=== PATIENT | male | born 1940 | race Caucasian/White ===

== ENCOUNTER → 2016-10-22 | Outpatient (REF) | payer MEDICARE ==
[~2016-10-22] MED LIST: /GLYB5TA PO; /HCTZ25TA PO; /MYCO50TA PO; ALEV220C2 PO; ALLO100T PO; AMLO10TA OR; AMLO10TA2 PO; BABY81CH; BACT800T5 PO; CALCTAB68 PO; CEFT250T OR; CENTTAB PO; CITRACAL PO; DRIS50002 PO; FISH1000 PO; FLOM5CAP PO; GLYB5TA PO; HYDR-3910 PO; JANU25TA PO; LASI40TA PO; LEXA1TAB PO; LIDO1DIS2 TD; LOPE2CAP PO; MAGN500T2; MUCI600T37 PO; MULTIVIT PO; MYCO500T PO; NEUR300C; NEUR300C PO; NITR100C PO; OMEP40CA2 PO; OXYC-208 PO; OXYC-517 PO; OXYC5CAP4; PRIL20CA PO; TACR05CAP PO; ULOR80TA PO; VESI5TAB PO; [UNRECOGNIZED DRUG - OTHER] PO; [UNRECOGNIZED DRUG - OTHER] PO
== END ==
LOC: M LAB REF 16:25
PROVIDERS: ATTEND Surgery
DX: L89.613 Pressure ulcer of right heel, stage 3 (principal); E11.621 Type 2 diabetes mellitus with foot ulcer; Z94.4 Liver transplant status; Z79.899 Other long term (current) drug therapy
CPT/HCPCS: 15275; 87070; 87088; 87186; Q4131

== ENCOUNTER → 2017-06-01 | Outpatient (REF) | payer MEDICARE ==
[2017-06-01 13:50] LABS: BASO # 0.1 10^3/uL (0.0-0.2); BASO % 0.7 % (0.0-1.0); EOS # 0.1 10^3/uL (0.0-0.50); HEMATOCRIT 35.8 % (42.0-52.0); HEMOGLOBIN 11.9 g/dl (14.0-18.0); IMMATURE GRANULOCYTE % 0.6 % (0-0); LYMPH # 1.2 10^3/uL (1.5-4.5); LYMPH % 17.4 % (24.0-44.0); MEAN CORPUSCULAR HEMOGLOBIN 30.6 pg (27.0-33.0); MEAN CORPUSCULAR HGB CONC 33.2 g/dl (32.0-36.5); MONO # 0.4 10^3/uL (0.0-0.8); MONO % 5.5 % (0.0-5.0); NEUTROPHILS # 5.1 10^3/uL (1.8-7.7); NEUTROPHILS % 73.8 % (36.0-66.0); PLATELET COUNT, AUTOMATED 178 10^3/uL (150-450); RED BLOOD COUNT 3.89 10^6/uL (4.30-6.10); RED CELL DISTRIBUTION WIDTH 12.9 % (11.5-14.5); WHITE BLOOD COUNT 6.9 10^3/uL (4.0-10.0)
[2017-06-01 14:25] LABS: ESTIMATED AVERAGE GLUCOSE 137 MG/DL (60-110); HEMOGLOBIN A1c 6.4 %
[2017-06-01 14:29] LABS: VITAMIN B12 LEVEL 360 PG/ML
[2017-06-01 14:34] LABS: ALBUMIN 3.7 GM/DL (3.2-5.2); ALBUMIN/GLOBULIN RATIO 0.97 (1.00-1.93); ALKALINE PHOSPHATASE 89 U/L (45-117); ALT/SGPT 15 U/L (12-78); ANION GAP 13 MEQ/L (8-16); AST/SGOT 11 U/L (7-37); BILIRUBIN,TOTAL 0.4 MG/DL (0.2-1.0); BLOOD UREA NITROGEN 24 MG/DL (7-18); CALCIUM LEVEL 8.3 MG/DL (8.8-10.2); CARBON DIOXIDE LEVEL 31 MEQ/L (21-32); CHLORIDE LEVEL 97 MEQ/L (98-107); CREATININE FOR GFR 7.14 MG/DL (0.70-1.30); GLUCOSE, FASTING 214 MG/DL (70-100); POTASSIUM SERUM 3.5 MEQ/L (3.5-5.1); SODIUM LEVEL 141 MEQ/L (136-145); TOTAL PROTEIN 7.5 GM/DL (6.4-8.2)
[2017-06-03 10:35] LABS: ALBUMIN 4.14 GM/DL (3.29-5.55); ALBUMIN % 55.2 % (55.8-66.1); ALPHA-1-GLOBULIN % 4.4 % (2.9-4.9); BETA-2-GLOBULINS % 6.8 % (3.2-6.5); GAMMA GLOBULIN % 17.6 % (11.1-18.8)
[2017-06-03 10:36] LABS: ALPHA-1-GLOBULINS 0.33 GM/DL (0.17-0.41); ALPHA-2-GLOBULINS 0.75 GM/DL (0.42-0.99); BETA-1-GLOBULINS 0.45 GM/DL (0.28-0.60); BETA-2-GLOBULINS 0.51 GM/DL (0.19-0.55); GAMMA GLOBULINS 1.32 GM/DL (0.65-1.58)
[2017-06-03 10:54] LABS: IMMUNOTYPING SERUM IGA ABNORMAL (NORMAL); IMMUNOTYPING SERUM KAPPA ABNORMAL (NORMAL)
== END ==
LOC: M LABNEURO 10:11
DX: E11.9 Type 2 diabetes mellitus without complications (principal); E03.9 Hypothyroidism, unspecified
CPT/HCPCS: 82746

== ENCOUNTER 2022-01-01 06:20 | Inpatient (IN) | payer MEDICARE ==
[~2022-01-01] VITALS: Ht 180.3 cm; Wt 70.3 kg
[~2022-01-01 06:20] MED LIST changes: -/GLYB5TA PO; -/HCTZ25TA PO; -/MYCO50TA PO; -AMLO10TA2 PO; +AMLO1TAB25 PO; +CELL1TAB PO; -DRIS50002 PO; +DRIS50003 PO; +FLOM0.4C39 PO; -FLOM5CAP PO; +GLYB1TAB29 PO; -GLYB5TA PO; +GLYB5TAB6 PO; +HYDR-3644 PO; -LASI40TA PO; +LASI40TA9 PO; -OMEP40CA2 PO; +OMEP40CA4 PO; +PROG1CAP10 PO; -TACR05CAP PO
[2022-01-01] MEDS ORDERED: **hydrALAZINE HCL** 25 MG TAB PO ONE (07:55)
[2022-01-01 08:00] LABS: BASO % 0.5 % (0.0-1.0); EOS # 0.1 10^3/uL (0.0-0.5); EOS % 0.8 % (0.0-3.0); HEMATOCRIT 31.5 % (42.0-52.0); HEMOGLOBIN 10.2 g/dl (13.5-17.5); LYMPH # 0.6 10^3/uL (1.5-5.0); LYMPH % 8.9 % (24.0-44.0); MEAN CORPUSCULAR HEMOGLOBIN 30.4 pg (27.0-33.0); MEAN CORPUSCULAR HGB CONC 32.4 g/dl (32.0-36.5); MEAN CORPUSCULAR VOLUME 93.8 fl (80.0-96.0); MONO # 0.4 10^3/uL (0.0-0.8); MONO % 5.4 % (2.0-8.0); NEUTROPHILS # 5.5 10^3/uL (1.5-8.5); NEUTROPHILS % 84.1 % (36.0-66.0); PLATELET COUNT, AUTOMATED 120 10^3/uL (150-450); RED BLOOD COUNT 3.36 10^6/uL (4.30-6.10); WHITE BLOOD COUNT 6.5 10^3/uL (4.0-10.0)
[2022-01-01 08:41] LABS: ALBUMIN 2.5 GM/DL (3.2-5.2); BILIRUBIN,DIRECT 0.1 MG/DL (0.0-0.2); BILIRUBIN,TOTAL 0.4 MG/DL (0.2-1.0); CALCIUM LEVEL 7.7 MG/DL (8.8-10.2); CREATININE FOR GFR 3.05 MG/DL (0.70-1.30); GLOMERULAR FILTRATION RATE 21.1 (>35); POTASSIUM SERUM 3.7 MEQ/L (3.5-5.1); THYROID STIMULATING HORMONE 2.7 uIU/ML (0.358-3.740)
[2022-01-01] MEDS ORDERED: hydrALAZINE 20MG/ML 1ML VIAL (J0360 PER 20MG) IV STA (09:51)
[2022-01-01 10:12] LABS: RSV AMPLIFICATION NEGATIVE (NEGATIVE)
[2022-01-01] MEDS ORDERED: cefTRIAXone SOD 2 GM in D5W MINI-BAG PLUS 50 ML IV ONE (10:15)
[2022-01-01 10:33] LABS: INR 1.86; PROTHROMBIN TIME 21.8 SECONDS (12.7-14.5)
[2022-01-01 10:57] LABS: VENOUS BASE EXCESS 11.2 (-2.0-2.0); VENOUS HCO3 37.9 MEQ/L (23.0-27.0); VENOUS O2 SATURATION 74.9 % (60.0-80.0); VENOUS PARTIAL PRESSURE CO2 60.2 mmHg (38.0-50.0); VENOUS PARTIAL PRESSURE O2 38.4 mmHg (30.0-50.0); VENOUS PH 7.417 UNITS (7.330-7.430); VENOUS STANDARD HCO3 34.4 MEQ/L; VENOUS TOTAL CO2 39.8 MEQ/L (24.0-28.0)
[2022-01-01] MEDS ORDERED: WARF-58 PO (11:08)
[2022-01-01] MEDS ORDERED: TACR1CAP3 PO (11:08)
[2022-01-01] MEDS ORDERED: VENL37.598 PO (11:08)
[2022-01-01] MEDS ORDERED: DRIS50003 PO (11:08)
[2022-01-01] MEDS ORDERED: NORV5TAB PO (11:08)
[2022-01-01] MEDS ORDERED: ESOM1CAP5 PO (11:13)
[2022-01-01] MEDS ORDERED: TACR0.5C3 PO (11:13)
[2022-01-01 11:16] LABS: MAGNESIUM LEVEL 1.7 MG/DL (1.8-2.4); PHOSPHORUS LEVEL 2.9 MG/DL (2.5-4.9)
[2022-01-01] MEDS ORDERED: MOM 30ML SUSPENSION UDC PO PRN (11:20)
[2022-01-01] MEDS ORDERED: pt comment (11:22)
[2022-01-01] MEDS ORDERED: HOME MED LIST COMPLETE! XX SCH (11:25)
[2022-01-01] MEDS: INSULIN LISPRO (NovoLOG) PER UNIT SC SCH ×3 (12:00→21:00)
[2022-01-01] MEDS ORDERED: WARFARIN SOD 5MG TAB PO ONE (12:15)
[2022-01-01] MEDS ORDERED: hydrALAZINE 20MG/ML 1ML VIAL (J0360 PER 20MG) IV PRN ×2 (12:15→17:10)
[2022-01-01] MEDS ORDERED: DEXTROSE 50% 50 ML SYRINGE IV PRN ×2 (12:20→16:20)
[2022-01-01] MEDS ORDERED: GLUCOSE 4GM CHEW TABLET PO PRN ×2 (12:20→16:20)
[2022-01-01] MEDS ORDERED: GLUCAGON INJ 1MG VIAL SC PRN ×2 (12:20→16:20)
[2022-01-01] MEDS ORDERED: ONDANSETRON 4MG 2ML VIAL IV PRN (13:00)
[2022-01-01 15:40] VITALS: BP 209/86
[2022-01-01 16:12] VITALS: BP 182/76
[2022-01-01] MEDS: MYCOPHENOLATE MOFETIL 250 MG CAP (J7517) PO SCH ×2 (17:23→21:27)
[2022-01-01] MEDS: VENLAFAXINE **XR** 37.5 MG CAPSULE PO SCH (17:23)
[2022-01-01] MEDS: PANTOPRAZOLE 40MG VIAL IV SCH (17:23)
[2022-01-01 18:18] VITALS: BP 160/62
[2022-01-01 20:42] VITALS: BP 165/75
[2022-01-01] MEDS: TACROLIMUS 0.5 MG CAP PO SCH (21:28)
[2022-01-01] MEDS: CARVedilol 12.5 MG TAB PO SCH (21:28)
[2022-01-02] VITALS (8 sets, daily range): BP systolic 134–165; BP diastolic 58–72
[2022-01-02 01:19] LABS: CK-MB VALUE MASS 2.9 NG/ML (<3.6); MB/CK RELATIVE INDEX 2.66 (< OR =4)
[2022-01-02] MEDS ORDERED: LIDOCAINE 1% SDV 5ML VIAL SC PRN (06:00)
[2022-01-02] MEDS: INSULIN LISPRO (NovoLOG) PER UNIT SC SCH ×4 (07:30→21:00)
[2022-01-02 08:00] LABS: BASO % 0.8 % (0.0-1.0); EOS # 0.1 10^3/uL (0.0-0.5); EOS % 3.9 % (0.0-3.0); HEMATOCRIT 29.8 % (42.0-52.0); HEMOGLOBIN 9.5 g/dl (13.5-17.5); LYMPH # 0.8 10^3/uL (1.5-5.0); LYMPH % 22.6 % (24.0-44.0); MEAN CORPUSCULAR HEMOGLOBIN 30.1 pg (27.0-33.0); MEAN CORPUSCULAR HGB CONC 31.9 g/dl (32.0-36.5); MEAN CORPUSCULAR VOLUME 94.3 fl (80.0-96.0); MONO # 0.2 10^3/uL (0.0-0.8); MONO % 6.1 % (2.0-8.0); NEUTROPHILS # 2.4 10^3/uL (1.5-8.5); NEUTROPHILS % 66.3 % (36.0-66.0); PLATELET COUNT, AUTOMATED 102 10^3/uL (150-450); RED BLOOD COUNT 3.16 10^6/uL (4.30-6.10); WHITE BLOOD COUNT 3.6 10^3/uL (4.0-10.0)
[2022-01-02 08:09] LABS: INR 2.78; PROTHROMBIN TIME 29.7 SECONDS (12.7-14.5)
[2022-01-02] MEDS: PANTOPRAZOLE 40MG VIAL IV SCH (08:20)
[2022-01-02] MEDS: VENLAFAXINE **XR** 37.5 MG CAPSULE PO SCH (08:21)
[2022-01-02] MEDS: CARVedilol 12.5 MG TAB PO SCH ×3 (08:22→21:42)
[2022-01-02 08:44] LABS: CREATININE FOR GFR 4.98 MG/DL (0.70-1.30); POTASSIUM SERUM 3.5 MEQ/L (3.5-5.1)
[2022-01-02] MEDS: MYCOPHENOLATE MOFETIL 250 MG CAP (J7517) PO SCH ×2 (09:31→21:37)
[2022-01-02] MEDS ORDERED: ISOVUE-370 76% 100ML VIAL As Ordered ONE (10:32)
[2022-01-02] MEDS: PIPERACILLIN/TAZOBACTAM SOD 3.375 GM in D5W MINI-BAG PLUS 50 ML IV SCH ×2 (16:49→21:38)
[2022-01-02] MEDS: WARFARIN SOD 3MG TAB PO SCH (16:49)
[2022-01-02] MEDS: ACETAMINOPHEN TAB 650MG DOSE (2X325MG) PO PRN (16:54)
[2022-01-02] MEDS: TACROLIMUS 0.5 MG CAP PO SCH (21:37)
[2022-01-03] MEDS: PIPERACILLIN/TAZOBACTAM SOD 3.375 GM in D5W MINI-BAG PLUS 50 ML IV SCH ×2 (03:26→09:36)
[2022-01-03 04:49] VITALS: BP 142/72
[2022-01-03 07:07] LABS: BASO % 1.2 % (0.0-1.0); EOS # 0.2 10^3/uL (0.0-0.5); EOS % 5.6 % (0.0-3.0); HEMATOCRIT 26.1 % (42.0-52.0); HEMOGLOBIN 8.5 g/dl (13.5-17.5); LYMPH # 0.8 10^3/uL (1.5-5.0); LYMPH % 23.5 % (24.0-44.0); MEAN CORPUSCULAR HEMOGLOBIN 30.7 pg (27.0-33.0); MEAN CORPUSCULAR HGB CONC 32.6 g/dl (32.0-36.5); MEAN CORPUSCULAR VOLUME 94.2 fl (80.0-96.0); MONO # 0.3 10^3/uL (0.0-0.8); MONO % 8.6 % (2.0-8.0); NEUTROPHILS % 60.5 % (36.0-66.0); PLATELET COUNT, AUTOMATED 106 10^3/uL (150-450); RED BLOOD COUNT 2.77 10^6/uL (4.30-6.10); WHITE BLOOD COUNT 3.2 10^3/uL (4.0-10.0)
[2022-01-03 07:25] LABS: INR 3.82; PROTHROMBIN TIME 37.8 SECONDS (12.7-14.5)
[2022-01-03] MEDS: INSULIN LISPRO (NovoLOG) PER UNIT SC SCH ×4 (07:30→20:15)
[2022-01-03 07:35] LABS: CALCIUM LEVEL 8.4 MG/DL (8.8-10.2); CREATININE FOR GFR 3.07 MG/DL (0.70-1.30); POTASSIUM SERUM 3.5 MEQ/L (3.5-5.1)
[2022-01-03 08:49] VITALS: BP 186/80
[2022-01-03] MEDS ORDERED: **hydrALAZINE** 10 MG TAB PO SCH (09:00)
[2022-01-03] MEDS ORDERED: AUGMENTIN 875 MG TAB PO SCH (09:00)
[2022-01-03] MEDS: OMEPRAZOLE 20MG CAP PO SCH (09:30)
[2022-01-03] MEDS: MYCOPHENOLATE MOFETIL 250 MG CAP (J7517) PO SCH ×2 (09:30→20:12)
[2022-01-03] MEDS: VENLAFAXINE **XR** 37.5 MG CAPSULE PO SCH (09:31)
[2022-01-03] MEDS ORDERED: PILL CUTTER 1 EACH XX PRN (09:40)
[2022-01-03 12:00] VITALS: BP 185/78
[2022-01-03] MEDS: AUGMENTIN 500MG TAB PO SCH ×2 (13:39→20:12)
[2022-01-03 16:00] VITALS: BP 154/70
[2022-01-03] MEDS: **hydrALAZINE** 50 MG TAB PO SCH ×2 (17:02→20:14)
[2022-01-03 20:00] VITALS: BP 183/76
[2022-01-03] MEDS: TACROLIMUS 0.5 MG CAP PO SCH (20:12)
[2022-01-03 23:59] VITALS: BP 178/82
[2022-01-04] MEDS ORDERED: cloNIDine 0.2 MG TAB PO ONE (01:00)
[2022-01-04 03:00] VITALS: BP 170/60
[2022-01-04] MEDS: ACETAMINOPHEN TAB 650MG DOSE (2X325MG) PO PRN ×2 (06:24→20:08)
[2022-01-04 06:32] LABS: BASO % 0.8 % (0.0-1.0); EOS # 0.2 10^3/uL (0.0-0.5); HEMOGLOBIN 8.7 g/dl (13.5-17.5); LYMPH # 0.9 10^3/uL (1.5-5.0); LYMPH % 24.1 % (24.0-44.0); MEAN CORPUSCULAR HEMOGLOBIN 30.2 pg (27.0-33.0); MEAN CORPUSCULAR HGB CONC 32.2 g/dl (32.0-36.5); MEAN CORPUSCULAR VOLUME 93.8 fl (80.0-96.0); MONO # 0.3 10^3/uL (0.0-0.8); MONO % 8.1 % (2.0-8.0); NEUTROPHILS # 2.3 10^3/uL (1.5-8.5); NEUTROPHILS % 61.5 % (36.0-66.0); PLATELET COUNT, AUTOMATED 103 10^3/uL (150-450); RED BLOOD COUNT 2.88 10^6/uL (4.30-6.10); WHITE BLOOD COUNT 3.8 10^3/uL (4.0-10.0)
[2022-01-04 06:53] LABS: INR 4.06; PROTHROMBIN TIME 39.6 SECONDS (12.7-14.5)
[2022-01-04 07:17] LABS: CALCIUM LEVEL 8.6 MG/DL (8.8-10.2); CREATININE FOR GFR 4.44 MG/DL (0.70-1.30); GLOMERULAR FILTRATION RATE 13.7 (>35); POTASSIUM SERUM 3.3 MEQ/L (3.5-5.1)
[2022-01-04] MEDS: INSULIN LISPRO (NovoLOG) PER UNIT SC SCH ×5 (07:30→20:07)
[2022-01-04] MEDS ORDERED: POTASSIUM CHLORIDE 10MEQ SR TABLET PO ONE (08:15)
[2022-01-04] MEDS: AUGMENTIN 500MG TAB PO SCH ×2 (08:43→20:09)
[2022-01-04] MEDS: OMEPRAZOLE 20MG CAP PO SCH (08:43)
[2022-01-04] MEDS: MYCOPHENOLATE MOFETIL 250 MG CAP (J7517) PO SCH ×2 (08:44→20:15)
[2022-01-04] MEDS: VENLAFAXINE **XR** 37.5 MG CAPSULE PO SCH (08:45)
[2022-01-04] MEDS: **hydrALAZINE** 50 MG TAB PO SCH ×3 (08:46→20:10)
[2022-01-04 19:28] VITALS: BP 170/78
[2022-01-04 19:30] LABS: CLOSTRIDIUM DIFFICILE PCR NEGATIVE (NEGATIVE)
[2022-01-04] MEDS: TACROLIMUS 0.5 MG CAP PO SCH (20:10)
[2022-01-05 04:24] VITALS: BP 176/80
[2022-01-05] MEDS: **hydrALAZINE** 50 MG TAB PO SCH ×3 (05:22→20:40)
[2022-01-05] MEDS: OMEPRAZOLE 20MG CAP PO SCH (05:23)
[2022-01-05] MEDS: MYCOPHENOLATE MOFETIL 250 MG CAP (J7517) PO SCH ×2 (05:23→20:38)
[2022-01-05] MEDS: VENLAFAXINE **XR** 37.5 MG CAPSULE PO SCH (05:24)
[2022-01-05] MEDS: AUGMENTIN 500MG TAB PO SCH (05:24)
[2022-01-05] MEDS: ACETAMINOPHEN TAB 650MG DOSE (2X325MG) PO PRN ×2 (05:24→12:37)
[2022-01-05] MEDS ORDERED: SODIUM CHLORIDE 0.9% 1000ML IV PRN (06:25)
[2022-01-05] MEDS ORDERED: LIDOCAINE 1% SDV 5ML VIAL SC PRN (06:25)
[2022-01-05 07:30] LABS: BASO # 0.1 10^3/uL (0.0-0.2); BASO % 1.1 % (0.0-1.0); EOS # 0.2 10^3/uL (0.0-0.5); EOS % 5.1 % (0.0-3.0); HEMATOCRIT 30.8 % (42.0-52.0); HEMOGLOBIN 9.7 g/dl (13.5-17.5); LYMPH % 21.8 % (24.0-44.0); MEAN CORPUSCULAR HEMOGLOBIN 29.3 pg (27.0-33.0); MEAN CORPUSCULAR HGB CONC 31.5 g/dl (32.0-36.5); MEAN CORPUSCULAR VOLUME 93.1 fl (80.0-96.0); MONO # 0.3 10^3/uL (0.0-0.8); MONO % 7.1 % (2.0-8.0); NEUTROPHILS # 2.9 10^3/uL (1.5-8.5); NEUTROPHILS % 64.7 % (36.0-66.0); PLATELET COUNT, AUTOMATED 133 10^3/uL (150-450); RED BLOOD COUNT 3.31 10^6/uL (4.30-6.10); WHITE BLOOD COUNT 4.5 10^3/uL (4.0-10.0)
[2022-01-05] MEDS: INSULIN LISPRO (NovoLOG) PER UNIT SC SCH ×4 (07:30→19:37)
[2022-01-05 07:47] LABS: CALCIUM LEVEL 8.5 MG/DL (8.8-10.2); CREATININE FOR GFR 5.73 MG/DL (0.70-1.30); GLOMERULAR FILTRATION RATE 10.2 (>35); POTASSIUM SERUM 3.5 MEQ/L (3.5-5.1)
[2022-01-05 07:53] LABS: PROTHROMBIN TIME 23.1 SECONDS (12.7-14.5)
[2022-01-05] MEDS: LACTOBACILLUS ACIDOPHILUS CAP (BACID) PO SCH ×2 (08:00→17:00)
[2022-01-05] MEDS: DARBEPOETIN 100 MCG/0.5 ML *DIALYSIS* SYRINGE (J0882) IV SCH (10:16)
[2022-01-05] MEDS: WARFARIN SOD 3MG TAB PO SCH (16:31)
[2022-01-05] MEDS: TACROLIMUS 0.5 MG CAP PO SCH (20:38)
[2022-01-06 04:00] VITALS: BP 172/76
[2022-01-06 05:57] LABS: BASO % 0.7 % (0.0-1.0); EOS # 0.2 10^3/uL (0.0-0.5); EOS % 3.5 % (0.0-3.0); HEMATOCRIT 27.5 % (42.0-52.0); HEMOGLOBIN 8.8 g/dl (13.5-17.5); LYMPH # 1.1 10^3/uL (1.5-5.0); LYMPH % 25.8 % (24.0-44.0); MEAN CORPUSCULAR HEMOGLOBIN 29.4 pg (27.0-33.0); MONO # 0.3 10^3/uL (0.0-0.8); MONO % 7.4 % (2.0-8.0); NEUTROPHILS # 2.7 10^3/uL (1.5-8.5); NEUTROPHILS % 62.4 % (36.0-66.0); PLATELET COUNT, AUTOMATED 113 10^3/uL (150-450); RED BLOOD COUNT 2.99 10^6/uL (4.30-6.10); WHITE BLOOD COUNT 4.3 10^3/uL (4.0-10.0)
[2022-01-06 06:18] LABS: INR 1.59; PROTHROMBIN TIME 19.3 SECONDS (12.7-14.5)
[2022-01-06 07:01] LABS: CALCIUM LEVEL 8.2 MG/DL (8.8-10.2); CREATININE FOR GFR 4.27 MG/DL (0.70-1.30); GLOMERULAR FILTRATION RATE 14.3 (>35); POTASSIUM SERUM 3.6 MEQ/L (3.5-5.1)
[2022-01-06] MEDS: INSULIN LISPRO (NovoLOG) PER UNIT SC SCH ×4 (07:11→21:00)
[2022-01-06] MEDS: LACTOBACILLUS ACIDOPHILUS CAP (BACID) PO SCH ×2 (08:08→16:31)
[2022-01-06] MEDS: OMEPRAZOLE 20MG CAP PO SCH (08:09)
[2022-01-06] MEDS: VENLAFAXINE **XR** 37.5 MG CAPSULE PO SCH (08:09)
[2022-01-06] MEDS: **hydrALAZINE** 50 MG TAB PO SCH ×3 (08:09→21:06)
[2022-01-06] MEDS: MYCOPHENOLATE MOFETIL 250 MG CAP (J7517) PO SCH ×2 (08:12→21:05)
[2022-01-06] MEDS: ONDANSETRON 4MG TAB PO PRN ×2 (10:25→16:31)
[2022-01-06 14:00] VITALS: BP 168/75
[2022-01-06] MEDS: WARFARIN SOD 3MG TAB PO SCH (16:31)
[2022-01-06 18:00] VITALS: BP 130/80
[2022-01-06] MEDS: TACROLIMUS 0.5 MG CAP PO SCH (21:05)
[2022-01-06 22:00] VITALS: BP 149/54
[2022-01-07] MEDS: VENLAFAXINE **XR** 37.5 MG CAPSULE PO SCH (05:26)
[2022-01-07] MEDS: LACTOBACILLUS ACIDOPHILUS CAP (BACID) PO SCH ×2 (05:26→17:27)
[2022-01-07] MEDS: MYCOPHENOLATE MOFETIL 250 MG CAP (J7517) PO SCH ×2 (05:27→21:59)
[2022-01-07] MEDS: OMEPRAZOLE 20MG CAP PO SCH (05:27)
[2022-01-07] MEDS: **hydrALAZINE** 50 MG TAB PO SCH ×3 (05:28→21:58)
[2022-01-07 05:56] LABS: BASO % 1.2 % (0.0-1.0); EOS # 0.1 10^3/uL (0.0-0.5); EOS % 3.9 % (0.0-3.0); HEMATOCRIT 29.3 % (42.0-52.0); HEMOGLOBIN 9.4 g/dl (13.5-17.5); LYMPH % 30.3 % (24.0-44.0); MEAN CORPUSCULAR HEMOGLOBIN 29.9 pg (27.0-33.0); MEAN CORPUSCULAR HGB CONC 32.1 g/dl (32.0-36.5); MEAN CORPUSCULAR VOLUME 93.3 fl (80.0-96.0); MONO # 0.3 10^3/uL (0.0-0.8); MONO % 7.4 % (2.0-8.0); NEUTROPHILS # 1.9 10^3/uL (1.5-8.5); NEUTROPHILS % 56.9 % (36.0-66.0); PLATELET COUNT, AUTOMATED 112 10^3/uL (150-450); RED BLOOD COUNT 3.14 10^6/uL (4.30-6.10); WHITE BLOOD COUNT 3.4 10^3/uL (4.0-10.0)
[2022-01-07 06:00] VITALS: BP 149/61
[2022-01-07] MEDS ORDERED: LIDOCAINE 1% SDV 5ML VIAL SC PRN (06:40)
[2022-01-07] MEDS ORDERED: SODIUM CHLORIDE 0.9% 1000ML IV PRN (06:40)
[2022-01-07 06:46] LABS: CALCIUM LEVEL 8.2 MG/DL (8.8-10.2); CREATININE FOR GFR 5.63 MG/DL (0.70-1.30); GLOMERULAR FILTRATION RATE 10.4 (>35); POTASSIUM SERUM 3.8 MEQ/L (3.5-5.1)
[2022-01-07] MEDS: INSULIN LISPRO (NovoLOG) PER UNIT SC SCH (07:27)
[2022-01-07 14:00] VITALS: BP 192/90
[2022-01-07 14:36] VITALS: BP 192/90
[2022-01-07] MEDS ORDERED: **hydrALAZINE** 50 MG TAB PO ONE (16:00)
[2022-01-07] MEDS ORDERED: COVID-19 VACC, MRNA(PFIZER)/PF 30MCG 0.3ML VIAL (EUA) IM.IMMUN ONE (17:00)
[2022-01-07] MEDS: WARFARIN SOD 3MG TAB PO SCH (17:27)
[2022-01-07 17:28] VITALS: BP 148/78
[2022-01-07] MEDS: TACROLIMUS 0.5 MG CAP PO SCH (21:59)
[2022-01-07] MEDS: ACETAMINOPHEN TAB 650MG DOSE (2X325MG) PO PRN (22:02)
[2022-01-08 06:00] VITALS: BP 155/73
[2022-01-08 06:55] LABS: BASO % 0.7 % (0.0-1.0); EOS # 0.2 10^3/uL (0.0-0.5); EOS % 4.9 % (0.0-3.0); HEMATOCRIT 31.4 % (42.0-52.0); HEMOGLOBIN 9.9 g/dl (13.5-17.5); MEAN CORPUSCULAR HEMOGLOBIN 29.8 pg (27.0-33.0); MEAN CORPUSCULAR HGB CONC 31.5 g/dl (32.0-36.5); MEAN CORPUSCULAR VOLUME 94.6 fl (80.0-96.0); MONO # 0.2 10^3/uL (0.0-0.8); MONO % 4.4 % (2.0-8.0); NEUTROPHILS # 2.7 10^3/uL (1.5-8.5); NEUTROPHILS % 65.8 % (36.0-66.0); PLATELET COUNT, AUTOMATED 133 10^3/uL (150-450); RED BLOOD COUNT 3.32 10^6/uL (4.30-6.10); WHITE BLOOD COUNT 4.1 10^3/uL (4.0-10.0)
[2022-01-08 07:06] LABS: INR 1.24
[2022-01-08 07:22] LABS: CALCIUM LEVEL 8.7 MG/DL (8.8-10.2); CREATININE FOR GFR 4.27 MG/DL (0.70-1.30); GLOMERULAR FILTRATION RATE 14.3 (>35); POTASSIUM SERUM 4.6 MEQ/L (3.5-5.1)
[2022-01-08] MEDS: LIDOCAINE 5% (LIDODERM) PATCH TD SCH (09:00)
[2022-01-08] MEDS: LACTOBACILLUS ACIDOPHILUS CAP (BACID) PO SCH ×2 (09:32→17:39)
[2022-01-08] MEDS: OMEPRAZOLE 20MG CAP PO SCH (09:32)
[2022-01-08] MEDS: MYCOPHENOLATE MOFETIL 250 MG CAP (J7517) PO SCH ×2 (09:33→21:05)
[2022-01-08] MEDS: VENLAFAXINE **XR** 37.5 MG CAPSULE PO SCH (09:33)
[2022-01-08] MEDS: **hydrALAZINE** 50 MG TAB PO SCH ×3 (09:33→21:02)
[2022-01-08] MEDS: WARFARIN SOD 5MG TAB PO SCH (17:40)
[2022-01-08] MEDS: **NOTE PATIENT COMMENT** MISC XX SCH (20:53)
[2022-01-08] MEDS: TACROLIMUS 0.5 MG CAP PO SCH (21:02)
[2022-01-09 04:59] VITALS: BP 175/70
[2022-01-09] MEDS: LACTOBACILLUS ACIDOPHILUS CAP (BACID) PO SCH ×2 (06:25→17:09)
[2022-01-09] MEDS: VENLAFAXINE **XR** 37.5 MG CAPSULE PO SCH (06:25)
[2022-01-09] MEDS: MYCOPHENOLATE MOFETIL 250 MG CAP (J7517) PO SCH ×2 (06:25→20:58)
[2022-01-09] MEDS: LIDOCAINE 5% (LIDODERM) PATCH TD SCH ×2 (06:26→06:29)
[2022-01-09] MEDS: OMEPRAZOLE 20MG CAP PO SCH (06:26)
[2022-01-09 06:35] LABS: INR 1.17; PROTHROMBIN TIME 15.3 SECONDS (12.7-14.5)
[2022-01-09 06:53] LABS: CREATININE FOR GFR 5.38 MG/DL (0.70-1.30)
[2022-01-09] MEDS ORDERED: SODIUM CHLORIDE 0.9% 1000ML IV PRN (07:45)
[2022-01-09] MEDS ORDERED: LIDOCAINE 1% SDV 5ML VIAL SC PRN (07:45)
[2022-01-09] MEDS: **hydrALAZINE** 50 MG TAB PO SCH ×2 (08:03→17:09)
[2022-01-09] MEDS ORDERED: LOPERAMIDE 2 MG CAPLET PO PRN (08:10)
[2022-01-09] MEDS ORDERED: WARFARIN SOD 3MG TAB PO ONE (17:00)
[2022-01-09] MEDS: WARFARIN SOD 5MG TAB PO SCH (17:09)
[2022-01-09] MEDS ORDERED: IPRATROPIUM 0.5MG/ALBUTEROL 2.5MG INH SOL UD 3ML (DUONEB) NEB PRN (19:20)
[2022-01-09] MEDS ORDERED: **hydrALAZINE HCL** 25 MG TAB PO SCH (21:00)
[2022-01-09] MEDS: TACROLIMUS 0.5 MG CAP PO SCH (21:04)
[2022-01-09] MEDS: **NOTE PATIENT COMMENT** MISC XX SCH (21:07)
[2022-01-10 06:00] VITALS: BP 180/77
[2022-01-10 07:27] LABS: INR 1.38; PROTHROMBIN TIME 17.4 SECONDS (12.7-14.5)
[2022-01-10] MEDS: LACTOBACILLUS ACIDOPHILUS CAP (BACID) PO SCH ×2 (08:55→17:22)
[2022-01-10] MEDS: MYCOPHENOLATE MOFETIL 250 MG CAP (J7517) PO SCH ×2 (08:56→21:16)
[2022-01-10] MEDS: LIDOCAINE 5% (LIDODERM) PATCH TD SCH (08:56)
[2022-01-10] MEDS: OMEPRAZOLE 20MG CAP PO SCH (08:56)
[2022-01-10] MEDS: VENLAFAXINE **XR** 37.5 MG CAPSULE PO SCH (08:56)
[2022-01-10] MEDS: **hydrALAZINE HCL** 25 MG TAB PO SCH ×3 (08:59→21:19)
[2022-01-10] MEDS: NIFEdipine 30 MG XL TAB PO SCH (09:56)
[2022-01-10] MEDS ORDERED: WARFARIN SOD 2MG TAB PO ONE (17:00)
[2022-01-10] MEDS: WARFARIN SOD 5MG TAB PO SCH (17:23)
[2022-01-10] MEDS: ACETAMINOPHEN TAB 650MG DOSE (2X325MG) PO PRN (21:16)
[2022-01-10] MEDS: TACROLIMUS 0.5 MG CAP PO SCH (21:19)
[2022-01-10] MEDS: **NOTE PATIENT COMMENT** MISC XX SCH (21:20)
[2022-01-11 06:08] VITALS: BP 146/84
[2022-01-11 06:36] LABS: INR 2.09; PROTHROMBIN TIME 23.9 SECONDS (12.7-14.5)
[2022-01-11] MEDS: OMEPRAZOLE 20MG CAP PO SCH (09:39)
[2022-01-11] MEDS: VENLAFAXINE **XR** 37.5 MG CAPSULE PO SCH (09:39)
[2022-01-11] MEDS: **hydrALAZINE HCL** 25 MG TAB PO SCH ×3 (09:40→21:50)
[2022-01-11] MEDS: NIFEdipine 30 MG XL TAB PO SCH (09:41)
[2022-01-11] MEDS: MYCOPHENOLATE MOFETIL 250 MG CAP (J7517) PO SCH ×2 (09:41→21:50)
[2022-01-11] MEDS: LACTOBACILLUS ACIDOPHILUS CAP (BACID) PO SCH ×2 (09:41→16:55)
[2022-01-11] MEDS: LIDOCAINE 5% (LIDODERM) PATCH TD SCH (09:42)
[2022-01-11] MEDS: WARFARIN SOD 5MG TAB PO SCH (16:53)
[2022-01-11] MEDS: ACETAMINOPHEN TAB 650MG DOSE (2X325MG) PO PRN (16:56)
[2022-01-11] MEDS: **NOTE PATIENT COMMENT** MISC XX SCH (21:00)
[2022-01-11] MEDS: TACROLIMUS 0.5 MG CAP PO SCH (21:49)
[2022-01-12 06:00] VITALS: BP 159/59
[2022-01-12] MEDS ORDERED: LIDOCAINE 1% SDV 5ML VIAL SC PRN (06:00)
[2022-01-12] MEDS ORDERED: SODIUM CHLORIDE 0.9% 1000ML IV PRN (06:00)
[2022-01-12] MEDS: LACTOBACILLUS ACIDOPHILUS CAP (BACID) PO SCH ×2 (06:48→16:54)
[2022-01-12 06:49] LABS: INR 2.79; PROTHROMBIN TIME 29.8 SECONDS (12.7-14.5)
[2022-01-12] MEDS: VENLAFAXINE **XR** 37.5 MG CAPSULE PO SCH (06:49)
[2022-01-12] MEDS: MYCOPHENOLATE MOFETIL 250 MG CAP (J7517) PO SCH ×2 (06:49→21:13)
[2022-01-12] MEDS: LIDOCAINE 5% (LIDODERM) PATCH TD SCH (06:49)
[2022-01-12] MEDS: OMEPRAZOLE 20MG CAP PO SCH (06:49)
[2022-01-12] MEDS: **hydrALAZINE HCL** 25 MG TAB PO SCH ×3 (08:34→21:14)
[2022-01-12] MEDS: NIFEdipine 30 MG XL TAB PO SCH (08:34)
[2022-01-12] MEDS: DARBEPOETIN 100 MCG/0.5 ML *DIALYSIS* SYRINGE (J0882) IV SCH (11:35)
[2022-01-12] MEDS: WARFARIN SOD 3MG TAB PO SCH (16:54)
[2022-01-12] MEDS: TACROLIMUS 0.5 MG CAP PO SCH (21:23)
[2022-01-12] MEDS: **NOTE PATIENT COMMENT** MISC XX SCH (21:30)
[2022-01-13 06:00] VITALS: BP 188/72
[2022-01-13] MEDS ORDERED: SODIUM CHLORIDE 0.9% 1000ML IV PRN (06:00)
[2022-01-13] MEDS ORDERED: LIDOCAINE 1% SDV 5ML VIAL SC PRN (06:00)
[2022-01-13 06:54] LABS: INR 2.56; PROTHROMBIN TIME 27.8 SECONDS (12.7-14.5)
[2022-01-13 06:58] LABS: CALCIUM LEVEL 8.6 MG/DL (8.8-10.2); CREATININE FOR GFR 4.03 MG/DL (0.70-1.30); GLOMERULAR FILTRATION RATE 15.3 (>35); POTASSIUM SERUM 4.3 MEQ/L (3.5-5.1)
[2022-01-13] MEDS ORDERED: DOXAZOSIN MESYLATE 1 MG TAB PO ONE (07:00)
[2022-01-13] MEDS: LACTOBACILLUS ACIDOPHILUS CAP (BACID) PO SCH ×2 (08:31→17:00)
[2022-01-13] MEDS: MYCOPHENOLATE MOFETIL 250 MG CAP (J7517) PO SCH ×2 (08:31→21:42)
[2022-01-13] MEDS: OMEPRAZOLE 20MG CAP PO SCH (08:31)
[2022-01-13] MEDS: NIFEdipine 30 MG XL TAB PO SCH (08:32)
[2022-01-13] MEDS: LIDOCAINE 5% (LIDODERM) PATCH TD SCH (08:32)
[2022-01-13] MEDS: VENLAFAXINE **XR** 37.5 MG CAPSULE PO SCH (08:32)
[2022-01-13] MEDS: **hydrALAZINE** 50 MG TAB PO SCH ×3 (08:57→21:43)
[2022-01-13 10:14] VITALS: BP 178/80
[2022-01-13 11:08] VITALS: BP 190/82
[2022-01-13] MEDS: ACETAMINOPHEN TAB 650MG DOSE (2X325MG) PO PRN (11:56)
[2022-01-13] MEDS: CARVedilol 3.125 MG TAB PO SCH ×2 (11:57→21:42)
[2022-01-13] MEDS ORDERED: NIFEdipine 30 MG XL TAB PO ONE (12:00)
[2022-01-13 12:23] LABS: CK-MB VALUE MASS 2.5 NG/ML (<3.6); MB/CK RELATIVE INDEX 8.33 (< OR =4)
[2022-01-13 13:03] VITALS: BP 162/68
[2022-01-13] MEDS: WARFARIN SOD 3MG TAB PO SCH (17:00)
[2022-01-13] MEDS: TACROLIMUS 0.5 MG CAP PO SCH (21:42)
[2022-01-13] MEDS: **NOTE PATIENT COMMENT** MISC XX SCH (21:47)
[2022-01-14 01:51] VITALS: BP 145/69
[2022-01-14 06:00] VITALS: BP 149/69
[2022-01-14] MEDS: LIDOCAINE 5% (LIDODERM) PATCH TD SCH (06:18)
[2022-01-14] MEDS: OMEPRAZOLE 20MG CAP PO SCH (06:18)
[2022-01-14] MEDS: VENLAFAXINE **XR** 37.5 MG CAPSULE PO SCH (06:18)
[2022-01-14] MEDS: MYCOPHENOLATE MOFETIL 250 MG CAP (J7517) PO SCH ×2 (06:18→20:15)
[2022-01-14] MEDS: LACTOBACILLUS ACIDOPHILUS CAP (BACID) PO SCH ×2 (06:19→16:37)
[2022-01-14 06:35] LABS: INR 2.54; PROTHROMBIN TIME 27.7 SECONDS (12.7-14.5)
[2022-01-14 06:41] LABS: CALCIUM LEVEL 8.6 MG/DL (8.8-10.2); CREATININE FOR GFR 5.39 MG/DL (0.70-1.30); POTASSIUM SERUM 4.4 MEQ/L (3.5-5.1)
[2022-01-14] MEDS: NIFEdipine 30 MG XL TAB PO SCH (07:43)
[2022-01-14] MEDS: CARVedilol 3.125 MG TAB PO SCH ×2 (07:44→20:15)
[2022-01-14] MEDS: **hydrALAZINE** 50 MG TAB PO SCH ×3 (07:44→20:15)
[2022-01-14] MEDS: DOXAZOSIN MESYLATE 1 MG TAB PO SCH (07:44)
[2022-01-14] MEDS ORDERED: COVID-19 VAC, BV (MODERNA)/PF 50 MCG/0.5 ML VIAL (EUA) IM.IMMUN ONE (16:00)
[2022-01-14] MEDS: WARFARIN SOD 3MG TAB PO SCH (16:37)
[2022-01-14] MEDS: TACROLIMUS 0.5 MG CAP PO SCH (20:14)
[2022-01-14] MEDS: **NOTE PATIENT COMMENT** MISC XX SCH (20:16)
[2022-01-14] MEDS: ACETAMINOPHEN TAB 650MG DOSE (2X325MG) PO PRN (20:21)
[2022-01-15 05:29] VITALS: BP 132/66
[2022-01-15 06:30] LABS: INR 2.15; PROTHROMBIN TIME 24.4 SECONDS (12.7-14.5)
[2022-01-15 07:32] LABS: CALCIUM LEVEL 8.7 MG/DL (8.8-10.2); CREATININE FOR GFR 3.81 MG/DL (0.70-1.30); GLOMERULAR FILTRATION RATE 16.3 (>35); POTASSIUM SERUM 4.3 MEQ/L (3.5-5.1)
[2022-01-15] MEDS: LIDOCAINE 5% (LIDODERM) PATCH TD SCH (08:35)
[2022-01-15] MEDS: OMEPRAZOLE 20MG CAP PO SCH (08:35)
[2022-01-15] MEDS: NIFEdipine 30 MG XL TAB PO SCH (08:35)
[2022-01-15] MEDS: LACTOBACILLUS ACIDOPHILUS CAP (BACID) PO SCH ×2 (08:35→17:31)
[2022-01-15] MEDS: MYCOPHENOLATE MOFETIL 250 MG CAP (J7517) PO SCH ×2 (08:36→20:33)
[2022-01-15] MEDS: VENLAFAXINE **XR** 37.5 MG CAPSULE PO SCH (08:36)
[2022-01-15] MEDS: **hydrALAZINE** 50 MG TAB PO SCH ×3 (08:36→20:33)
[2022-01-15] MEDS: CARVedilol 3.125 MG TAB PO SCH ×2 (08:36→20:33)
[2022-01-15] MEDS: DOXAZOSIN MESYLATE 1 MG TAB PO SCH (08:36)
[2022-01-15] MEDS ORDERED: WARFARIN SOD 3MG TAB PO SCH (17:00)
[2022-01-15] MEDS ORDERED: WARFARIN SOD 4MG TAB PO SCH (17:00)
[2022-01-15] MEDS: TACROLIMUS 0.5 MG CAP PO SCH (20:33)
[2022-01-15] MEDS: ACETAMINOPHEN TAB 650MG DOSE (2X325MG) PO PRN (20:34)
[2022-01-15] MEDS: **NOTE PATIENT COMMENT** MISC XX SCH (20:35)
[2022-01-16] MEDS ORDERED: LIDOCAINE 1% SDV 5ML VIAL SC PRN (06:00)
[2022-01-16] MEDS ORDERED: SODIUM CHLORIDE 0.9% 1000ML IV PRN (06:00)
[2022-01-16 06:06] VITALS: BP 167/72
[2022-01-16] MEDS: OMEPRAZOLE 20MG CAP PO SCH (06:15)
[2022-01-16] MEDS: MYCOPHENOLATE MOFETIL 250 MG CAP (J7517) PO SCH (06:15)
[2022-01-16] MEDS: LACTOBACILLUS ACIDOPHILUS CAP (BACID) PO SCH (06:15)
[2022-01-16] MEDS: VENLAFAXINE **XR** 37.5 MG CAPSULE PO SCH (06:15)
[2022-01-16] MEDS: LIDOCAINE 5% (LIDODERM) PATCH TD SCH (06:16)
[2022-01-16] MEDS: CARVedilol 3.125 MG TAB PO SCH (07:49)
[2022-01-16] MEDS: **hydrALAZINE** 50 MG TAB PO SCH (07:49)
[2022-01-16] MEDS: DOXAZOSIN MESYLATE 1 MG TAB PO SCH (07:49)
[2022-01-16 07:50] VITALS: BP 167/72
[2022-01-16] MEDS: NIFEdipine 30 MG XL TAB PO SCH (07:50)
[2022-01-16 07:53] LABS: INR 2.18; PROTHROMBIN TIME 24.7 SECONDS (12.7-14.5)
[2022-01-16] MEDS ORDERED: OMEP-173 PO (11:58)
[2022-01-16] MEDS ORDERED: DARB100SYR IV (11:58)
[2022-01-16] MEDS ORDERED: NIFE1TAB52 PO (11:58)
[2022-01-16] MEDS ORDERED: IPRA0.00 NEB (11:58)
[2022-01-16] MEDS ORDERED: CELL250C PO (11:58)
[2022-01-16] MEDS ORDERED: HYDR50TA PO (11:58)
[2022-01-16] MEDS ORDERED: RISATAB3 PO (11:58)
[2022-01-16] MEDS ORDERED: CARD1TAB4 PO (11:58)
[2022-01-16] MEDS ORDERED: JANT4TAB PO (11:58)
[2022-01-16] MEDS ORDERED: LOPE2CA PO (11:58)
[2022-01-16] MEDS ORDERED: PROG1CAP10 PO (11:58)
[2022-01-16] MEDS ORDERED: VENL37.598 PO (11:58)
[2022-01-16] MEDS ORDERED: LIDO5TD TD (11:58)
[2022-01-16] MEDS ORDERED: ONDA-83 PO (11:58)
[2022-01-16] MEDS ORDERED: CARV3.12 PO (11:58)
== END 2022-01-16 14:15 | disposition other institution (70) | DRG 189 ==
LOC: M ED 06:20 → M ED INP 12:42 → EEVIPCON 12:42 → ENRESERV 14:57 → M 4MAIN 15:57 → M MS5PR 01-06 17:49
PROVIDERS: ADMIT Internal Medicine; ATTEND Internal Medicine
PROC: 5A1D70Z Performance of Urinary Filtration, Intermittent, Less than 6 Hours Per Day (ICD-10-PCS; principal; 2022-01-02)
DX: J96.21 Acute and chronic respiratory failure with hypoxia (principal); N18.6 End stage renal disease; J69.0 Pneumonitis due to inhalation of food and vomit; Z94.4 Liver transplant status; J90 Pleural effusion, not elsewhere classified; E87.3 Alkalosis; D84.9 Immunodeficiency, unspecified; I12.0 Hypertensive chronic kidney disease with stage 5 chronic kidney disease or end stage renal disease; Z99.2 Dependence on renal dialysis; M10.9 Gout, unspecified; M17.0 Bilateral primary osteoarthritis of knee; E11.42 Type 2 diabetes mellitus with diabetic polyneuropathy; E11.22 Type 2 diabetes mellitus with diabetic chronic kidney disease; E78.5 Hyperlipidemia, unspecified; D69.6 Thrombocytopenia, unspecified; Z66 Do not resuscitate; M54.9 Dorsalgia, unspecified; G89.29 Other chronic pain; K21.9 Gastro-esophageal reflux disease without esophagitis; Z90.49 Acquired absence of other specified parts of digestive tract; Z87.891 Personal history of nicotine dependence; I16.0 Hypertensive urgency; Z79.01 Long term (current) use of anticoagulants; Z79.899 Other long term (current) drug therapy; Z88.8 Allergy status to other drugs, medicaments and biological substances; R26.89 Other abnormalities of gait and mobility; R29.6 Repeated falls; A08.4 Viral intestinal infection, unspecified; R00.1 Bradycardia, unspecified; T44.6X5A Adverse effect of alpha-adrenoreceptor antagonists, initial encounter; Z20.822 Contact with and (suspected) exposure to COVID-19; F39 Unspecified mood [affective] disorder; S00.93XA Contusion of unspecified part of head, initial encounter; S20.211A Contusion of right front wall of thorax, initial encounter; S20.212A Contusion of left front wall of thorax, initial encounter; W01.0XXA Fall on same level from slipping, tripping and stumbling without subsequent striking against object, initial encounter; Y92.009 Unspecified place in unspecified non-institutional (private) residence as the place of occurrence of the external cause

== ENCOUNTER 2022-03-14 09:38 | Inpatient (IN) | payer MEDICARE ==
[~2022-03-14 09:38] MED LIST changes: +CARD1TAB4 PO; +CARV3.12 PO; +CELL250C PO; +DARB100SYR IV; +ESOM1CAP5 PO; +HYDR50TA PO; +IPRA0.00 NEB; +JANT4TAB PO; +LIDO5TD TD; +LOPE2CA PO; +NIFE1TAB52 PO; +NORV5TAB PO; +OMEP-173 PO; +ONDA-83 PO; +RISATAB3 PO; +TACR0.5C3 PO; +TACR1CAP3 PO; +VENL37.598 PO; +WARF-58 PO; +pt comment
[2022-03-14] MEDS: NS 1,000 ML IV SCH ×2 (10:05→17:24)
[2022-03-14 11:15] LABS: VENOUS BASE EXCESS 7.2 (-2.0-2.0); VENOUS HCO3 31.9 MEQ/L (23.0-27.0); VENOUS O2 SATURATION 96.9 % (60.0-80.0); VENOUS PARTIAL PRESSURE CO2 46.4 mmHg (38.0-50.0); VENOUS PH 7.455 UNITS (7.330-7.430); VENOUS TOTAL CO2 33.3 MEQ/L (24.0-28.0)
[2022-03-14 11:20] LABS: EOS # 0.1 10^3/uL (0.0-0.5); EOS % 1.9 % (0.0-3.0); HEMATOCRIT 25.9 % (42.0-52.0); LYMPH # 0.8 10^3/uL (1.5-5.0); LYMPH % 25.7 % (24.0-44.0); MEAN CORPUSCULAR HEMOGLOBIN 28.5 pg (27.0-33.0); MEAN CORPUSCULAR HGB CONC 30.9 g/dl (32.0-36.5); MEAN CORPUSCULAR VOLUME 92.2 fl (80.0-96.0); MONO # 0.2 10^3/uL (0.0-0.8); MONO % 5.4 % (2.0-8.0); NEUTROPHILS # 2.1 10^3/uL (1.5-8.5); NEUTROPHILS % 65.7 % (36.0-66.0); PLATELET COUNT, AUTOMATED 139 10^3/uL (150-450); RED BLOOD COUNT 2.81 10^6/uL (4.30-6.10); WHITE BLOOD COUNT 3.2 10^3/uL (4.0-10.0)
[2022-03-14 11:43] LABS: INR 1.45; PROTHROMBIN TIME 17.9 SECONDS (12.5-14.5)
[2022-03-14 11:59] LABS: ALBUMIN 2.5 GM/DL (3.2-5.2); BILIRUBIN,DIRECT 0.2 MG/DL (0.0-0.2); BILIRUBIN,TOTAL 0.4 MG/DL (0.2-1.0); CALCIUM LEVEL 8.2 MG/DL (8.8-10.2); CREATININE FOR GFR 2.96 MG/DL (0.70-1.30); GLOMERULAR FILTRATION RATE 21.9 (>35); POTASSIUM SERUM 4.2 MEQ/L (3.5-5.1); TOTAL PROTEIN 5.3 GM/DL (6.4-8.2)
[2022-03-14] MEDS ORDERED: DOXAZOSIN MESYLATE 1 MG TAB PO STA (13:26)
[2022-03-14] MEDS ORDERED: **hydrALAZINE** 50 MG TAB PO STA (13:26)
[2022-03-14] MEDS ORDERED: CARVedilol 3.125 MG TAB PO STA (13:26)
[2022-03-14] MEDS ORDERED: hydrALAZINE 20MG/ML 1ML VIAL (J0360 PER 20MG) IV STA (15:12)
[2022-03-14] MEDS ORDERED: ANTI2TAB16 PO (16:37)
[2022-03-14] MEDS ORDERED: [UNRECOGNIZED DRUG - OTHER] TOP (16:37)
[2022-03-14] MEDS ORDERED: HYDR-3911 PO (16:37)
[2022-03-14] MEDS ORDERED: PROA1AER2 INH (16:37)
[2022-03-14] MEDS ORDERED: DULC5TAB PO (16:37)
[2022-03-14] MEDS ORDERED: BISA10SU27 PR (16:37)
[2022-03-14] MEDS ORDERED: WARF-58 PO (16:37)
[2022-03-14] MEDS ORDERED: LACT20EL PO (16:44)
[2022-03-14] MEDS ORDERED: IPRA0.00 INH (16:44)
[2022-03-14] MEDS ORDERED: LIDO1PAD13 TOP (16:44)
[2022-03-14] MEDS ORDERED: LIDO1ADH20 TP (16:44)
[2022-03-14] MEDS ORDERED: BISA10EN PR (16:47)
[2022-03-14] MEDS ORDERED: ONDA-83 PO (16:51)
[2022-03-14] MEDS ORDERED: OMEP40CA5 PO (16:51)
[2022-03-14] MEDS ORDERED: ACET-907 PO (16:52)
[2022-03-14] MEDS ORDERED: WARFARIN SOD 3MG TAB PO SCH (17:00)
[2022-03-14] MEDS ORDERED: med rec comment (17:03)
[2022-03-14] MEDS ORDERED: HOME MED LIST COMPLETE! XX SCH ×2 (17:05→17:20)
[2022-03-14] MEDS ORDERED: ONDANSETRON 4MG TAB PO PRN (17:20)
[2022-03-14 17:35] LABS: RSV AMPLIFICATION NEGATIVE (NEGATIVE)
[2022-03-14 17:49] LABS: C REACTIVE PROTEIN QUANTITATIV 0.82 MG/DL (0.00-0.30)
[2022-03-14 18:06] LABS: ERYTHROCYTE SEDIMENTATION RATE 44 mm/hr (0-20)
[2022-03-14] MEDS ORDERED: **hydrALAZINE HCL** 25 MG TAB PO ONE (20:00)
[2022-03-14 21:00] VITALS: BP 134/70
[2022-03-14] MEDS: TACROLIMUS 0.5 MG CAP PO SCH (23:04)
[2022-03-14] MEDS: MYCOPHENOLATE MOFETIL 250 MG CAP (J7517) PO SCH (23:04)
[2022-03-15] VITALS (13 sets, daily range): BP systolic 152–220; BP diastolic 60–110; O2SAT 89–96
[2022-03-15] MEDS: hydrALAZINE 20MG/ML 1ML VIAL (J0360 PER 20MG) IV PRN (00:47)
[2022-03-15 05:47] LABS: BASO # 0.1 10^3/uL (0.0-0.2); BASO % 1.3 % (0.0-1.0); EOS # 0.1 10^3/uL (0.0-0.5); EOS % 2.2 % (0.0-3.0); HEMATOCRIT 26.5 % (42.0-52.0); HEMOGLOBIN 8.1 g/dl (13.5-17.5); LYMPH # 0.8 10^3/uL (1.5-5.0); LYMPH % 17.1 % (24.0-44.0); MEAN CORPUSCULAR HEMOGLOBIN 28.5 pg (27.0-33.0); MEAN CORPUSCULAR HGB CONC 30.6 g/dl (32.0-36.5); MEAN CORPUSCULAR VOLUME 93.3 fl (80.0-96.0); MONO # 0.3 10^3/uL (0.0-0.8); MONO % 5.4 % (2.0-8.0); NEUTROPHILS # 3.4 10^3/uL (1.5-8.5); NEUTROPHILS % 73.6 % (36.0-66.0); PLATELET COUNT, AUTOMATED 122 10^3/uL (150-450); RED BLOOD COUNT 2.84 10^6/uL (4.30-6.10); WHITE BLOOD COUNT 4.6 10^3/uL (4.0-10.0)
[2022-03-15 05:57] LABS: INR 1.9; PROTHROMBIN TIME 22.1 SECONDS (12.5-14.5)
[2022-03-15] MEDS ORDERED: **hydrALAZINE HCL** 25 MG TAB PO SCH (06:00)
[2022-03-15 06:20] LABS: CALCIUM LEVEL 8.4 MG/DL (8.8-10.2); CREATININE FOR GFR 3.89 MG/DL (0.70-1.30); MAGNESIUM LEVEL 1.7 MG/DL (1.8-2.4); PHOSPHORUS LEVEL 3.6 MG/DL (2.5-4.9); POTASSIUM SERUM 3.9 MEQ/L (3.5-5.1)
[2022-03-15] MEDS: VENLAFAXINE **XR** 37.5 MG CAPSULE PO SCH (08:34)
[2022-03-15] MEDS: DOXAZOSIN MESYLATE 1 MG TAB PO SCH (08:35)
[2022-03-15] MEDS: OMEPRAZOLE 20MG CAP PO SCH (08:35)
[2022-03-15] MEDS: NIFEdipine 30 MG XL TAB PO SCH (08:36)
[2022-03-15] MEDS: MYCOPHENOLATE MOFETIL 250 MG CAP (J7517) PO SCH ×2 (08:36→20:33)
[2022-03-15] MEDS ORDERED: ONDANSETRON 4MG 2ML VIAL IV PRN (09:35)
[2022-03-15] MEDS: **hydrALAZINE** 50 MG TAB PO SCH ×2 (13:03→21:21)
[2022-03-15] MEDS: WARFARIN SOD 4MG TAB PO SCH (17:43)
[2022-03-15] MEDS: TACROLIMUS 0.5 MG CAP PO SCH (20:33)
[2022-03-16] VITALS (18 sets, daily range): BP systolic 156–230; BP diastolic 68–124; O2SAT 95–100
[2022-03-16 05:59] LABS: BASO % 0.9 % (0.0-1.0); EOS # 0.1 10^3/uL (0.0-0.5); EOS % 2.3 % (0.0-3.0); HEMOGLOBIN 8.1 g/dl (13.5-17.5); LYMPH # 0.9 10^3/uL (1.5-5.0); LYMPH % 20.1 % (24.0-44.0); MEAN CORPUSCULAR HEMOGLOBIN 28.6 pg (27.0-33.0); MEAN CORPUSCULAR HGB CONC 31.2 g/dl (32.0-36.5); MEAN CORPUSCULAR VOLUME 91.9 fl (80.0-96.0); MONO # 0.3 10^3/uL (0.0-0.8); NEUTROPHILS % 70.5 % (36.0-66.0); PLATELET COUNT, AUTOMATED 149 10^3/uL (150-450); RED BLOOD COUNT 2.83 10^6/uL (4.30-6.10); WHITE BLOOD COUNT 4.3 10^3/uL (4.0-10.0)
[2022-03-16] MEDS: **hydrALAZINE** 50 MG TAB PO SCH ×3 (06:00→21:10)
[2022-03-16 06:01] LABS: INR 2.39; PROTHROMBIN TIME 26.5 SECONDS (12.5-14.5)
[2022-03-16 06:32] LABS: CALCIUM LEVEL 8.6 MG/DL (8.8-10.2); CREATININE FOR GFR 5.3 MG/DL (0.70-1.30); GLOMERULAR FILTRATION RATE 11.2 (>35); POTASSIUM SERUM 3.9 MEQ/L (3.5-5.1)
[2022-03-16] MEDS ORDERED: LIDOCAINE 1% SDV 5ML VIAL SC PRN (07:00)
[2022-03-16] MEDS ORDERED: SODIUM CHLORIDE 0.9% 1000ML IV PRN (07:00)
[2022-03-16 07:34] LABS: PERCENT SATURATION 49.1 % (19.7-50.0)
[2022-03-16] MEDS ORDERED: EPOG3000 INJ (07:48)
[2022-03-16] MEDS: DOXAZOSIN MESYLATE 1 MG TAB PO SCH (08:29)
[2022-03-16] MEDS: VENLAFAXINE **XR** 37.5 MG CAPSULE PO SCH (08:30)
[2022-03-16] MEDS: OMEPRAZOLE 20MG CAP PO SCH (08:31)
[2022-03-16] MEDS: MYCOPHENOLATE MOFETIL 250 MG CAP (J7517) PO SCH ×2 (08:31→21:13)
[2022-03-16] MEDS: NIFEdipine 30 MG XL TAB PO SCH (09:00)
[2022-03-16] MEDS ORDERED: LOSARTAN 50MG TABLET PO ONE (11:20)
[2022-03-16 14:04] LABS: HEPATITIS B CORE ANTIBODY IGM NEGATIVE (NEGATIVE); HEPATITIS B SURFACE ANTIBODY NEGATIVE (POSITIVE); HEPATITIS B SURFACE ANTIGEN NEGATIVE (NEGATIVE)
[2022-03-16 14:08] LABS: APPEARANCE, URINE MANUAL CLEAR (CLEAR); COLOR, URINE MANUAL YELLOW (YELLOW)
[2022-03-16 14:11] LABS: GLUCOSE, URINE (UA) MANUAL 1+(100 MG/DL) mg/dL (NEGATIVE); KETONE, URINE MANUAL 1+ mg/dL (NEGATIVE); PROTEIN, URINE MANUAL 3+ mg/dL (NEGATIVE); SPECIFIC GRAVITY,URINE MANUAL 1.005 (1.002-1.035)
[2022-03-16 14:12] LABS: BILIRUBIN, URINE MANUAL NEGATIVE (NEGATIVE); BLOOD URINE MANUAL NEGATIVE (NEGATIVE); LEUKOCYTE ESTERASE, URINE MAN POSITIVE (NEGATIVE); NITRITE, URINE MANUAL NEGATIVE (NEGATIVE); UROBILINOGEN, URINE MANUAL NORMAL (NORMAL)
[2022-03-16 15:07] LABS: RBC, URINE 0-1 /hpf (0-3); SQUAMOUS EPITHELIAL CELL URINE SMALL AMOUNT /hpf (SMALL AMT)
[2022-03-16 15:08] LABS: BACTERIA, URINE SMALL AMOUNT; HYALINE CAST, URINE NONE SEEN /lpf (0-1)
[2022-03-16] MEDS ORDERED: **hydrALAZINE** 50 MG TAB PO ONE (17:05)
[2022-03-16] MEDS: hydrALAZINE 20MG/ML 1ML VIAL (J0360 PER 20MG) IV PRN (17:09)
[2022-03-16] MEDS: WARFARIN SOD 4MG TAB PO SCH (17:09)
[2022-03-16] MEDS: TACROLIMUS 0.5 MG CAP PO SCH (21:12)
[2022-03-17] VITALS (18 sets, daily range): BP systolic 140–192; BP diastolic 63–84; O2SAT 97–100
[2022-03-17] MEDS: **hydrALAZINE** 50 MG TAB PO SCH ×3 (05:32→21:25)
[2022-03-17 07:13] LABS: BASO % 0.9 % (0.0-1.0); EOS # 0.1 10^3/uL (0.0-0.5); EOS % 2.2 % (0.0-3.0); HEMATOCRIT 25.7 % (42.0-52.0); LYMPH # 0.7 10^3/uL (1.5-5.0); LYMPH % 20.9 % (24.0-44.0); MEAN CORPUSCULAR HEMOGLOBIN 28.3 pg (27.0-33.0); MEAN CORPUSCULAR HGB CONC 31.1 g/dl (32.0-36.5); MEAN CORPUSCULAR VOLUME 90.8 fl (80.0-96.0); MONO # 0.2 10^3/uL (0.0-0.8); MONO % 5.8 % (2.0-8.0); NEUTROPHILS # 2.3 10^3/uL (1.5-8.5); NEUTROPHILS % 69.6 % (36.0-66.0); PLATELET COUNT, AUTOMATED 135 10^3/uL (150-450); RED BLOOD COUNT 2.83 10^6/uL (4.30-6.10); WHITE BLOOD COUNT 3.3 10^3/uL (4.0-10.0)
[2022-03-17 07:43] LABS: INR 1.9; PROTHROMBIN TIME 22.1 SECONDS (12.5-14.5)
[2022-03-17 08:17] LABS: CALCIUM LEVEL 8.6 MG/DL (8.8-10.2); CREATININE FOR GFR 3.66 MG/DL (0.70-1.30); GLOMERULAR FILTRATION RATE 17.1 (>35); POTASSIUM SERUM 4.1 MEQ/L (3.5-5.1)
[2022-03-17] MEDS: NIFEdipine 30 MG XL TAB PO SCH (09:53)
[2022-03-17] MEDS: OMEPRAZOLE 20MG CAP PO SCH (09:53)
[2022-03-17] MEDS: VENLAFAXINE **XR** 37.5 MG CAPSULE PO SCH (09:54)
[2022-03-17] MEDS: DOXAZOSIN MESYLATE 1 MG TAB PO SCH (09:54)
[2022-03-17] MEDS: MYCOPHENOLATE MOFETIL 250 MG CAP (J7517) PO SCH (09:54)
[2022-03-17] MEDS: LOSARTAN 50MG TABLET PO SCH (09:54)
[2022-03-17] MEDS: cefTRIAXone SOD 1 GM in D5W MINI-BAG PLUS 50 ML IV SCH (11:56)
[2022-03-17] MEDS: ACETAMINOPHEN TAB 650MG DOSE (2X325MG) PO PRN (11:56)
[2022-03-17] MEDS: WARFARIN SOD 4MG TAB PO SCH (17:27)
[2022-03-17] MEDS: hydrALAZINE 20MG/ML 1ML VIAL (J0360 PER 20MG) IV PRN (17:27)
[2022-03-17] MEDS: TACROLIMUS 0.5 MG CAP PO SCH (21:24)
[2022-03-18] VITALS (12 sets, daily range): BP systolic 148–202; BP diastolic 65–74; O2SAT 97–98
[2022-03-18 00:08] LABS: CMV QUANT DNA PCR (PLASMA) Negative (Negative); CYTOMEGALOVIRUS IgG ANTIBODY <0.60 U/mL (0.00-0.59); CYTOMEGALOVIRUS IgM ANTIBODY <30.0 AU/mL (0.0-29.9)
[2022-03-18 06:05] LABS: BASO % 0.8 % (0.0-1.0); EOS # 0.1 10^3/uL (0.0-0.5); HEMATOCRIT 27.7 % (42.0-52.0); HEMOGLOBIN 8.5 g/dl (13.5-17.5); LYMPH # 0.8 10^3/uL (1.5-5.0); LYMPH % 22.7 % (24.0-44.0); MEAN CORPUSCULAR HEMOGLOBIN 28.2 pg (27.0-33.0); MEAN CORPUSCULAR HGB CONC 30.7 g/dl (32.0-36.5); MONO # 0.2 10^3/uL (0.0-0.8); MONO % 5.2 % (2.0-8.0); NEUTROPHILS # 2.5 10^3/uL (1.5-8.5); PLATELET COUNT, AUTOMATED 152 10^3/uL (150-450); RED BLOOD COUNT 3.01 10^6/uL (4.30-6.10); WHITE BLOOD COUNT 3.6 10^3/uL (4.0-10.0)
[2022-03-18] MEDS: OMEPRAZOLE 20MG CAP PO SCH (06:16)
[2022-03-18 06:17] LABS: INR 1.95; PROTHROMBIN TIME 22.6 SECONDS (12.5-14.5)
[2022-03-18] MEDS: **hydrALAZINE** 50 MG TAB PO SCH (06:17)
[2022-03-18] MEDS: DOXAZOSIN MESYLATE 1 MG TAB PO SCH (06:17)
[2022-03-18] MEDS: VENLAFAXINE **XR** 37.5 MG CAPSULE PO SCH (06:18)
[2022-03-18] MEDS: NIFEdipine 30 MG XL TAB PO SCH (06:18)
[2022-03-18] MEDS: LOSARTAN 50MG TABLET PO SCH (06:18)
[2022-03-18 06:35] LABS: CREATININE FOR GFR 4.99 MG/DL (0.70-1.30); POTASSIUM SERUM 4.3 MEQ/L (3.5-5.1)
[2022-03-18] MEDS ORDERED: SODIUM CHLORIDE 0.9% 1000ML IV PRN (06:50)
[2022-03-18] MEDS ORDERED: LIDOCAINE 1% SDV 5ML VIAL SC PRN (06:50)
[2022-03-18] MEDS: hydrALAZINE 20MG/ML 1ML VIAL (J0360 PER 20MG) IV PRN (11:55)
[2022-03-18] MEDS: ACETAMINOPHEN TAB 650MG DOSE (2X325MG) PO PRN (11:56)
[2022-03-18] MEDS: cefTRIAXone SOD 1 GM in D5W MINI-BAG PLUS 50 ML IV SCH (12:07)
[2022-03-18] MEDS ORDERED: LOSA50TA28 PO (12:10)
[2022-03-18] MEDS ORDERED: HYDR25TA PO (12:10)
[2022-03-18] MEDS ORDERED: WARF-20 PO (12:10)
[2022-03-18] MEDS ORDERED: CELL250C PO (14:58)
== END 2022-03-18 15:48 | DRG 393 ==
LOC: EDBD 09:38 → M ED 09:38 → M ED INP 17:06 → ENRESERV 19:31 → M PCU 21:00
PROVIDERS: ADMIT Internal Medicine; ATTEND Internal Medicine
DX: K52.1 Toxic gastroenteritis and colitis (principal); N18.6 End stage renal disease; Z94.4 Liver transplant status; E87.3 Alkalosis; D61.818 Other pancytopenia; I12.0 Hypertensive chronic kidney disease with stage 5 chronic kidney disease or end stage renal disease; D68.59 Other primary thrombophilia; E46 Unspecified protein-calorie malnutrition; N39.0 Urinary tract infection, site not specified; I16.1 Hypertensive emergency; R16.1 Splenomegaly, not elsewhere classified; M10.9 Gout, unspecified; Z66 Do not resuscitate; E78.5 Hyperlipidemia, unspecified; E11.40 Type 2 diabetes mellitus with diabetic neuropathy, unspecified; N40.0 Benign prostatic hyperplasia without lower urinary tract symptoms; E11.22 Type 2 diabetes mellitus with diabetic chronic kidney disease; N20.0 Calculus of kidney; K21.9 Gastro-esophageal reflux disease without esophagitis; M17.0 Bilateral primary osteoarthritis of knee; I44.0 Atrioventricular block, first degree; D63.1 Anemia in chronic kidney disease; K70.30 Alcoholic cirrhosis of liver without ascites; Z79.899 Other long term (current) drug therapy; Z88.8 Allergy status to other drugs, medicaments and biological substances; F41.9 Anxiety disorder, unspecified; F32.A Depression, unspecified; T45.1X5A Adverse effect of antineoplastic and immunosuppressive drugs, initial encounter

== ENCOUNTER 2022-03-20 11:41 | Inpatient (IN) | payer MEDICARE ==
[~2022-03-20] VITALS: Ht 177.8 cm; Wt 71.3 kg
[~2022-03-20 11:41] MED LIST changes: +ACET-907 PO; +ANTI2TAB16 PO; +BISA10EN PR; +BISA10SU27 PR; +DULC5TAB PO; +EPOG3000 INJ; +HYDR-3911 PO; +HYDR25TA PO; +IPRA0.00 INH; +LACT20EL PO; +LIDO1ADH20 TP; +LIDO1PAD13 TOP; +LOSA50TA28 PO; +OMEP40CA5 PO; +PROA1AER2 INH; +WARF-20 PO; +[UNRECOGNIZED DRUG - OTHER] TOP; +med rec comment
[2022-03-20] MEDS ORDERED: NS 1,000 ML IV SCH (11:55)
[2022-03-20] MEDS ORDERED: **hydrALAZINE HCL** 25 MG TAB PO STA (13:27)
[2022-03-20] MEDS ORDERED: DOXAZOSIN MESYLATE 1 MG TAB PO STA (13:27)
[2022-03-20] MEDS ORDERED: LOSARTAN 50MG TABLET PO STA (13:27)
[2022-03-20] MEDS ORDERED: NIFEdipine 30 MG XL TAB PO ONE (13:30)
[2022-03-20 13:50] LABS: BASO % 0.8 % (0.0-1.0); EOS # 0.1 10^3/uL (0.0-0.5); HEMATOCRIT 24.3 % (42.0-52.0); HEMOGLOBIN 7.6 g/dl (13.5-17.5); LYMPH # 0.8 10^3/uL (1.5-5.0); LYMPH % 21.9 % (24.0-44.0); MEAN CORPUSCULAR HEMOGLOBIN 28.6 pg (27.0-33.0); MEAN CORPUSCULAR HGB CONC 31.3 g/dl (32.0-36.5); MEAN CORPUSCULAR VOLUME 91.4 fl (80.0-96.0); MONO # 0.2 10^3/uL (0.0-0.8); NEUTROPHILS # 2.5 10^3/uL (1.5-8.5); PLATELET COUNT, AUTOMATED 120 10^3/uL (150-450); RED BLOOD COUNT 2.66 10^6/uL (4.30-6.10); WHITE BLOOD COUNT 3.7 10^3/uL (4.0-10.0)
[2022-03-20 14:00] LABS: INR 1.67
[2022-03-20 14:13] LABS: ALBUMIN 2.5 GM/DL (3.2-5.2); BILIRUBIN,DIRECT 0.1 MG/DL (0.0-0.2); BILIRUBIN,TOTAL 0.4 MG/DL (0.2-1.0); CALCIUM LEVEL 8.6 MG/DL (8.8-10.2); CREATININE FOR GFR 5.43 MG/DL (0.70-1.30); GLOMERULAR FILTRATION RATE 10.9 (>35); POTASSIUM SERUM 4.7 MEQ/L (3.5-5.1); TOTAL PROTEIN 5.3 GM/DL (6.4-8.2)
[2022-03-20] MEDS ORDERED: hydrALAZINE 20MG/ML 1ML VIAL (J0360 PER 20MG) IV STA (17:16)
[2022-03-20] MEDS ORDERED: WARF-20 PO (18:44)
[2022-03-20] MEDS ORDERED: HYDR-3910 PO (18:44)
[2022-03-20] MEDS ORDERED: CELL250C PO (18:44)
[2022-03-20] MEDS ORDERED: BACI1CAP PO (18:44)
[2022-03-20] MEDS ORDERED: LOSA50TA28 PO (18:44)
[2022-03-20] MEDS ORDERED: ONDA-83 PO (18:44)
[2022-03-20] MEDS ORDERED: VENL37.598 PO (18:44)
[2022-03-20] MEDS ORDERED: LOPE1CAP5 PO (18:44)
[2022-03-20] MEDS ORDERED: NIFE30TA50 PO (18:44)
[2022-03-20] MEDS ORDERED: ASPE4PAD TOP (18:44)
[2022-03-20] MEDS ORDERED: PROA1AER2 INH (18:44)
[2022-03-20] MEDS ORDERED: NEPR1LIQ2 PO (18:44)
[2022-03-20] MEDS ORDERED: PROG1CAP10 PO (18:44)
[2022-03-20] MEDS ORDERED: DOXA1TAB42 PO (18:44)
[2022-03-20] MEDS ORDERED: HOME MED LIST COMPLETE! XX SCH (18:50)
[2022-03-20] MEDS ORDERED: ACETAMINOPHEN TAB 650MG DOSE (2X325MG) PO PRN (19:30)
[2022-03-20 19:56] LABS: RSV AMPLIFICATION NEGATIVE (NEGATIVE)
[2022-03-20] MEDS ORDERED: ONDANSETRON 4MG 2ML VIAL IV PRN (20:10)
[2022-03-20 22:23] VITALS: BP 196/74
[2022-03-20 22:49] LABS: INR 1.75; PROTHROMBIN TIME 20.8 SECONDS (12.5-14.5)
[2022-03-20] MEDS: MYCOPHENOLATE MOFETIL 250 MG CAP (J7517) PO SCH (23:42)
[2022-03-20] MEDS: TACROLIMUS 0.5 MG CAP PO SCH (23:42)
[2022-03-20] MEDS: WARFARIN SOD 4MG TAB PO SCH (23:42)
[2022-03-21] VITALS (13 sets, daily range): BP systolic 138–222; BP diastolic 70–102; O2SAT 98–99
[2022-03-21] MEDS: hydrALAZINE 20MG/ML 1ML VIAL (J0360 PER 20MG) IV PRN (04:01)
[2022-03-21 07:21] LABS: HEMATOCRIT 26.9 % (42.0-52.0); HEMOGLOBIN 8.4 g/dl (13.5-17.5); MEAN CORPUSCULAR HGB CONC 31.2 g/dl (32.0-36.5); MEAN CORPUSCULAR VOLUME 92.8 fl (80.0-96.0); PLATELET COUNT, AUTOMATED 122 10^3/uL (150-450); WHITE BLOOD COUNT 3.3 10^3/uL (4.0-10.0)
[2022-03-21 07:45] LABS: CALCIUM LEVEL 8.5 MG/DL (8.8-10.2); CREATININE FOR GFR 6.32 MG/DL (0.70-1.30); GLOMERULAR FILTRATION RATE 9.1 (>35); MAGNESIUM LEVEL 1.9 MG/DL (1.8-2.4); POTASSIUM SERUM 5.1 MEQ/L (3.5-5.1)
[2022-03-21] MEDS: **hydrALAZINE** 50 MG TAB PO SCH ×3 (08:14→21:10)
[2022-03-21] MEDS: LOSARTAN 50MG TABLET PO SCH (08:14)
[2022-03-21] MEDS: VENLAFAXINE **XR** 37.5 MG CAPSULE PO SCH (08:14)
[2022-03-21] MEDS: OMEPRAZOLE 20MG CAP PO SCH (08:15)
[2022-03-21] MEDS: DOXAZOSIN MESYLATE 1 MG TAB PO SCH (08:15)
[2022-03-21] MEDS: MYCOPHENOLATE MOFETIL 250 MG CAP (J7517) PO SCH ×2 (08:15→20:16)
[2022-03-21] MEDS: NIFEdipine 30 MG XL TAB PO SCH (08:24)
[2022-03-21] MEDS ORDERED: SODIUM CHLORIDE 0.9% 1000ML IV PRN (10:30)
[2022-03-21] MEDS ORDERED: LIDOCAINE 1% SDV 5ML VIAL SC PRN (10:30)
[2022-03-21] MEDS: WARFARIN SOD 4MG TAB PO SCH (16:41)
[2022-03-21 19:36] LABS: INR 1.98; PROTHROMBIN TIME 22.9 SECONDS (12.5-14.5)
[2022-03-21] MEDS: TACROLIMUS 0.5 MG CAP PO SCH (20:17)
[2022-03-21] MEDS ORDERED: WARFARIN SOD 1MG TAB PO ONE (21:55)
[2022-03-22] VITALS: BP 184/76
[2022-03-22 00:09] LABS: APPEARANCE, URINE MANUAL CLEAR (CLEAR); COLOR, URINE MANUAL YELLOW (YELLOW)
[2022-03-22 00:10] LABS: GLUCOSE, URINE (UA) MANUAL TRACE(50 MG/DL) mg/dL (NEGATIVE); PROTEIN, URINE MANUAL 2+ mg/dL (NEGATIVE); SPECIFIC GRAVITY,URINE MANUAL 1.005 (1.002-1.035)
[2022-03-22 00:11] LABS: BILIRUBIN, URINE MANUAL NEGATIVE (NEGATIVE); BLOOD URINE MANUAL NEGATIVE (NEGATIVE); KETONE, URINE MANUAL NEGATIVE (NEGATIVE); LEUKOCYTE ESTERASE, URINE MAN POSITIVE (NEGATIVE); NITRITE, URINE MANUAL NEGATIVE (NEGATIVE); UROBILINOGEN, URINE MANUAL NORMAL (NORMAL)
[2022-03-22 00:19] LABS: BACTERIA, URINE SMALL AMOUNT; HYALINE CAST, URINE NONE SEEN /lpf (0-1); SQUAMOUS EPITHELIAL CELL URINE SMALL AMOUNT /hpf (SMALL AMT)
[2022-03-22 04:00] VITALS: BP 160/90
[2022-03-22] MEDS: **hydrALAZINE** 50 MG TAB PO SCH ×4 (05:11→21:59)
[2022-03-22] MEDS: cefTRIAXone SOD 1 GM in D5W MINI-BAG PLUS 50 ML IV SCH ×2 (06:49→16:06)
[2022-03-22 07:00] LABS: BASO % 1.2 % (0.0-1.0); EOS # 0.2 10^3/uL (0.0-0.5); EOS % 4.4 % (0.0-3.0); HEMATOCRIT 25.9 % (42.0-52.0); HEMOGLOBIN 8.1 g/dl (13.5-17.5); LYMPH # 0.6 10^3/uL (1.5-5.0); LYMPH % 18.4 % (24.0-44.0); MEAN CORPUSCULAR HEMOGLOBIN 28.6 pg (27.0-33.0); MEAN CORPUSCULAR HGB CONC 31.3 g/dl (32.0-36.5); MEAN CORPUSCULAR VOLUME 91.5 fl (80.0-96.0); MONO # 0.2 10^3/uL (0.0-0.8); NEUTROPHILS # 2.4 10^3/uL (1.5-8.5); NEUTROPHILS % 70.7 % (36.0-66.0); PLATELET COUNT, AUTOMATED 116 10^3/uL (150-450); RED BLOOD COUNT 2.83 10^6/uL (4.30-6.10); WHITE BLOOD COUNT 3.4 10^3/uL (4.0-10.0)
[2022-03-22 07:09] LABS: INR 2.06; PROTHROMBIN TIME 23.5 SECONDS (12.5-14.5)
[2022-03-22 07:48] LABS: ALBUMIN 2.7 GM/DL (3.2-5.2); BILIRUBIN,TOTAL 0.3 MG/DL (0.2-1.0); CALCIUM LEVEL 8.3 MG/DL (8.8-10.2); CREATININE FOR GFR 4.12 MG/DL (0.70-1.30); GLOMERULAR FILTRATION RATE 14.9 (>35); POTASSIUM SERUM 4.2 MEQ/L (3.5-5.1); TOTAL PROTEIN 5.5 GM/DL (6.4-8.2)
[2022-03-22 07:54] VITALS: BP 228/82
[2022-03-22] MEDS: DOXAZOSIN MESYLATE 1 MG TAB PO SCH (08:07)
[2022-03-22] MEDS: OMEPRAZOLE 20MG CAP PO SCH (08:07)
[2022-03-22] MEDS: NIFEdipine 30 MG XL TAB PO SCH (08:08)
[2022-03-22] MEDS: MYCOPHENOLATE MOFETIL 250 MG CAP (J7517) PO SCH ×2 (08:08→21:08)
[2022-03-22] MEDS: VENLAFAXINE **XR** 37.5 MG CAPSULE PO SCH (08:08)
[2022-03-22] MEDS: LOSARTAN 50MG TABLET PO SCH (08:08)
[2022-03-22] MEDS ORDERED: MECLIZINE 12.5 MG TAB PO PRN (09:20)
[2022-03-22 11:34] VITALS: BP 224/93
[2022-03-22] MEDS ORDERED: LOSARTAN 50MG TABLET PO ONE (12:15)
[2022-03-22] MEDS: WARFARIN SOD 4MG TAB PO SCH (16:06)
[2022-03-22] MEDS: hydrALAZINE 20MG/ML 1ML VIAL (J0360 PER 20MG) IV PRN (16:06)
[2022-03-22 16:12] VITALS: BP 206/90
[2022-03-22 20:00] VITALS: BP 136/66
[2022-03-22] MEDS: TACROLIMUS 0.5 MG CAP PO SCH (21:08)
[2022-03-23] VITALS (7 sets, daily range): BP systolic 120–201; BP diastolic 67–79
[2022-03-23] MEDS: hydrALAZINE 20MG/ML 1ML VIAL (J0360 PER 20MG) IV PRN (00:21)
[2022-03-23] MEDS ORDERED: cloNIDine 0.2 MG TAB PO ONE (01:35)
[2022-03-23 05:38] LABS: INR 2.35; PROTHROMBIN TIME 26.1 SECONDS (12.5-14.5)
[2022-03-23] MEDS: **hydrALAZINE** 50 MG TAB PO SCH ×3 (05:56→21:01)
[2022-03-23] MEDS: VENLAFAXINE **XR** 37.5 MG CAPSULE PO SCH (05:56)
[2022-03-23] MEDS: MYCOPHENOLATE MOFETIL 250 MG CAP (J7517) PO SCH ×2 (05:56→20:58)
[2022-03-23] MEDS: LOSARTAN 50MG TABLET PO SCH (05:56)
[2022-03-23] MEDS: NIFEdipine 30 MG XL TAB PO SCH (05:57)
[2022-03-23] MEDS: OMEPRAZOLE 20MG CAP PO SCH (05:57)
[2022-03-23] MEDS: cefTRIAXone SOD 1 GM in D5W MINI-BAG PLUS 50 ML IV SCH ×2 (05:57→17:35)
[2022-03-23] MEDS: DOXAZOSIN MESYLATE 1 MG TAB PO SCH (06:00)
[2022-03-23] MEDS ORDERED: LIDOCAINE 1% SDV 5ML VIAL SC PRN (08:00)
[2022-03-23] MEDS ORDERED: SODIUM CHLORIDE 0.9% 1000ML IV PRN (08:00)
[2022-03-23 08:19] LABS: BASO % 0.6 % (0.0-1.0); EOS # 0.2 10^3/uL (0.0-0.5); EOS % 4.5 % (0.0-3.0); HEMATOCRIT 23.1 % (42.0-52.0); HEMOGLOBIN 7.2 g/dl (13.5-17.5); LYMPH # 0.8 10^3/uL (1.5-5.0); LYMPH % 23.4 % (24.0-44.0); MEAN CORPUSCULAR HEMOGLOBIN 28.7 pg (27.0-33.0); MEAN CORPUSCULAR HGB CONC 31.2 g/dl (32.0-36.5); MONO # 0.2 10^3/uL (0.0-0.8); MONO % 6.3 % (2.0-8.0); NEUTROPHILS # 2.2 10^3/uL (1.5-8.5); NEUTROPHILS % 64.9 % (36.0-66.0); PLATELET COUNT, AUTOMATED 111 10^3/uL (150-450); RED BLOOD COUNT 2.51 10^6/uL (4.30-6.10); WHITE BLOOD COUNT 3.3 10^3/uL (4.0-10.0)
[2022-03-23 08:26] LABS: CALCIUM LEVEL 8.2 MG/DL (8.8-10.2); CREATININE FOR GFR 5.19 MG/DL (0.70-1.30); GLOMERULAR FILTRATION RATE 11.4 (>35); POTASSIUM SERUM 4.5 MEQ/L (3.5-5.1)
[2022-03-23] MEDS: PANTOPRAZOLE 40MG TAB (PROTONIX) PO SCH ×2 (08:33→20:58)
[2022-03-23] MEDS ORDERED: LOSARTAN 50MG TABLET PO ONE (09:20)
[2022-03-23] MEDS: WARFARIN SOD 4MG TAB PO SCH (17:18)
[2022-03-23] MEDS: TACROLIMUS 0.5 MG CAP PO SCH (20:58)
[2022-03-24] VITALS (8 sets, daily range): BP systolic 161–210; BP diastolic 71–92
[2022-03-24] MEDS: hydrALAZINE 20MG/ML 1ML VIAL (J0360 PER 20MG) IV PRN ×2 (04:34→12:07)
[2022-03-24] MEDS: cefTRIAXone SOD 1 GM in D5W MINI-BAG PLUS 50 ML IV SCH ×2 (06:05→18:07)
[2022-03-24] MEDS: **hydrALAZINE** 50 MG TAB PO SCH ×3 (06:06→21:11)
[2022-03-24 06:11] LABS: BASO % 0.8 % (0.0-1.0); EOS # 0.1 10^3/uL (0.0-0.5); EOS % 4.2 % (0.0-3.0); HEMATOCRIT 24.7 % (42.0-52.0); HEMOGLOBIN 7.6 g/dl (13.5-17.5); LYMPH # 0.7 10^3/uL (1.5-5.0); LYMPH % 25.8 % (24.0-44.0); MEAN CORPUSCULAR HGB CONC 30.8 g/dl (32.0-36.5); MEAN CORPUSCULAR VOLUME 91.1 fl (80.0-96.0); MONO # 0.2 10^3/uL (0.0-0.8); NEUTROPHILS # 1.6 10^3/uL (1.5-8.5); NEUTROPHILS % 60.8 % (36.0-66.0); PLATELET COUNT, AUTOMATED 112 10^3/uL (150-450); RED BLOOD COUNT 2.71 10^6/uL (4.30-6.10); WHITE BLOOD COUNT 2.6 10^3/uL (4.0-10.0)
[2022-03-24 06:37] LABS: CREATININE FOR GFR 3.25 MG/DL (0.70-1.30); GLOMERULAR FILTRATION RATE 19.6 (>35); POTASSIUM SERUM 4.1 MEQ/L (3.5-5.1)
[2022-03-24 06:43] LABS: INR 2.08; PROTHROMBIN TIME 23.7 SECONDS (12.5-14.5)
[2022-03-24] MEDS: DOXAZOSIN MESYLATE 1 MG TAB PO SCH (09:50)
[2022-03-24] MEDS: LOSARTAN 50MG TABLET PO SCH (09:51)
[2022-03-24] MEDS: NIFEdipine 30 MG XL TAB PO SCH (09:51)
[2022-03-24] MEDS: VENLAFAXINE **XR** 37.5 MG CAPSULE PO SCH (09:51)
[2022-03-24] MEDS: MYCOPHENOLATE MOFETIL 250 MG CAP (J7517) PO SCH ×2 (09:51→21:11)
[2022-03-24] MEDS: PANTOPRAZOLE 40MG TAB (PROTONIX) PO SCH ×2 (09:52→21:10)
[2022-03-24] MEDS ORDERED: LOPERAMIDE 2 MG CAPLET PO ONE (13:00)
[2022-03-24] MEDS: WARFARIN SOD 4MG TAB PO SCH (18:07)
[2022-03-24] MEDS ORDERED: LOPERAMIDE 2 MG CAPLET PO PRN (19:15)
[2022-03-24] MEDS: TACROLIMUS 0.5 MG CAP PO SCH (21:11)
[2022-03-25] VITALS (7 sets, daily range): BP systolic 149–210; BP diastolic 67–90
[2022-03-25] MEDS: **hydrALAZINE** 50 MG TAB PO SCH ×3 (05:32→21:46)
[2022-03-25] MEDS: NIFEdipine 30 MG XL TAB PO SCH (05:49)
[2022-03-25] MEDS: LOSARTAN 50MG TABLET PO SCH (05:54)
[2022-03-25] MEDS: VENLAFAXINE **XR** 37.5 MG CAPSULE PO SCH (05:56)
[2022-03-25] MEDS: MYCOPHENOLATE MOFETIL 250 MG CAP (J7517) PO SCH ×2 (05:56→21:48)
[2022-03-25] MEDS: DOXAZOSIN MESYLATE 1 MG TAB PO SCH ×2 (05:56→21:44)
[2022-03-25] MEDS: PANTOPRAZOLE 40MG TAB (PROTONIX) PO SCH ×2 (05:56→21:44)
[2022-03-25 06:27] LABS: BASO % 0.7 % (0.0-1.0); EOS # 0.1 10^3/uL (0.0-0.5); HEMATOCRIT 21.6 % (42.0-52.0); LYMPH # 0.8 10^3/uL (1.5-5.0); LYMPH % 28.6 % (24.0-44.0); MEAN CORPUSCULAR HGB CONC 31.9 g/dl (32.0-36.5); MEAN CORPUSCULAR VOLUME 90.8 fl (80.0-96.0); MONO # 0.2 10^3/uL (0.0-0.8); MONO % 7.6 % (2.0-8.0); NEUTROPHILS # 1.6 10^3/uL (1.5-8.5); NEUTROPHILS % 58.7 % (36.0-66.0); PLATELET COUNT, AUTOMATED 100 10^3/uL (150-450); RED BLOOD COUNT 2.38 10^6/uL (4.30-6.10); WHITE BLOOD COUNT 2.8 10^3/uL (4.0-10.0)
[2022-03-25 06:34] LABS: HEMOGLOBIN 6.9 g/dl (13.5-17.5)
[2022-03-25 07:05] LABS: BLOOD UREA NITROGEN 29 MG/DL (9-23); CALCIUM LEVEL 8.1 MG/DL (8.3-10.6); CARBON DIOXIDE LEVEL 27 MMOL/L (20-31); CHLORIDE LEVEL 99 MMOL/L (98-107); CREATININE FOR GFR 4.49 MG/DL (0.70-1.30); GLOMERULAR FILTRATION RATE 13.5 (>35); GLUCOSE, FASTING 81 MG/DL (74-106); POTASSIUM SERUM 4.3 MMOL/L (3.5-5.1); SODIUM LEVEL 137 MMOL/L (136-145)
[2022-03-25 07:56] LABS: HEMATOCRIT 25.2 % (42.0-52.0); HEMOGLOBIN 7.7 g/dl (13.5-17.5)
[2022-03-25 08:11] LABS: INR 1.97; PROTHROMBIN TIME 22.8 SECONDS (12.5-14.5)
[2022-03-25] MEDS ORDERED: SODIUM CHLORIDE 0.9% 1000ML IV PRN (09:05)
[2022-03-25 13:53] LABS: ALBUMIN 2.6 G/DL (3.2-5.2); ALT/SGPT 8.99999 U/L (7.0-40); BILIRUBIN,DIRECT < 0.1 MG/DL (<0.4); BILIRUBIN,TOTAL < 0.2 MG/DL (0.3-1.2); TOTAL PROTEIN 5.2 G/DL (5.7-8.2)
[2022-03-25] MEDS ORDERED: DOXAZOSIN MESYLATE 1 MG TAB PO ONE (15:00)
[2022-03-25] MEDS ORDERED: NIFEdipine 30 MG XL TAB PO ONE (15:05)
[2022-03-25] MEDS ORDERED: LOSARTAN 50MG TABLET PO ONE (15:05)
[2022-03-25] MEDS: WARFARIN SOD 4MG TAB PO SCH (16:32)
[2022-03-25] MEDS: TACROLIMUS 0.5 MG CAP PO SCH (21:44)
[2022-03-26] MEDS: **hydrALAZINE** 50 MG TAB PO SCH (05:30)
[2022-03-26 07:01] LABS: BASO % 1.2 % (0.0-1.0); EOS # 0.1 10^3/uL (0.0-0.5); EOS % 2.8 % (0.0-3.0); HEMATOCRIT 23.1 % (42.0-52.0); HEMOGLOBIN 7.2 g/dl (13.5-17.5); LYMPH # 0.6 10^3/uL (1.5-5.0); LYMPH % 25.1 % (24.0-44.0); MEAN CORPUSCULAR HEMOGLOBIN 28.3 pg (27.0-33.0); MEAN CORPUSCULAR HGB CONC 31.2 g/dl (32.0-36.5); MEAN CORPUSCULAR VOLUME 90.9 fl (80.0-96.0); MONO # 0.2 10^3/uL (0.0-0.8); MONO % 7.7 % (2.0-8.0); NEUTROPHILS # 1.6 10^3/uL (1.5-8.5); NEUTROPHILS % 62.8 % (36.0-66.0); PLATELET COUNT, AUTOMATED 99 10^3/uL (150-450); RED BLOOD COUNT 2.54 10^6/uL (4.30-6.10); WHITE BLOOD COUNT 2.5 10^3/uL (4.0-10.0)
[2022-03-26 07:13] LABS: INR 2.1
[2022-03-26 07:48] LABS: CALCIUM LEVEL 7.8 MG/DL (8.3-10.6); CREATININE FOR GFR 2.99 MG/DL (0.70-1.30); GLOMERULAR FILTRATION RATE 21.6 (>35); POTASSIUM SERUM 3.7 MMOL/L (3.5-5.1)
[2022-03-26 07:50] VITALS: BP 145/67
[2022-03-26] MEDS ORDERED: TACROLIMUS 1 MG CAP (J7507) PO SCH (09:00)
[2022-03-26 09:22] VITALS: BP 145/67
[2022-03-26] MEDS: DOXAZOSIN MESYLATE 1 MG TAB PO SCH (09:22)
[2022-03-26] MEDS: NIFEdipine 30 MG XL TAB PO SCH (09:22)
[2022-03-26] MEDS: LOSARTAN 50MG TABLET PO SCH (09:23)
[2022-03-26] MEDS: PANTOPRAZOLE 40MG TAB (PROTONIX) PO SCH (09:23)
[2022-03-26] MEDS: VENLAFAXINE **XR** 37.5 MG CAPSULE PO SCH (09:23)
[2022-03-26] MEDS: MYCOPHENOLATE MOFETIL 250 MG CAP (J7517) PO SCH (09:24)
[2022-03-26] MEDS ORDERED: HYDR100T26 PO (11:02)
[2022-03-26] MEDS ORDERED: PROG1CAP11 PO (11:02)
[2022-03-26] MEDS ORDERED: PROC90TA PO (11:02)
[2022-03-26] MEDS ORDERED: PROG1CAP10 PO (11:02)
[2022-03-26] MEDS ORDERED: CARD1TAB4 PO (11:02)
[2022-03-26] MEDS ORDERED: LOSA100T45 PO (11:02)
== END 2022-03-26 13:20 | DRG 393 ==
LOC: EDBD 11:41 → M ED 11:41 → M ED INP 19:27 → ENRESERV 20:20 → M PCU 22:29
PROVIDERS: ADMIT Family Medicine; ATTEND Family Medicine
PROC: 5A1D70Z Performance of Urinary Filtration, Intermittent, Less than 6 Hours Per Day (ICD-10-PCS; principal; 2022-03-21)
DX: K52.1 Toxic gastroenteritis and colitis (principal); N18.6 End stage renal disease; Z94.4 Liver transplant status; D68.51 Activated protein C resistance; I12.0 Hypertensive chronic kidney disease with stage 5 chronic kidney disease or end stage renal disease; I16.9 Hypertensive crisis, unspecified; D61.818 Other pancytopenia; N39.0 Urinary tract infection, site not specified; K50.90 Crohn's disease, unspecified, without complications; J90 Pleural effusion, not elsewhere classified; D68.59 Other primary thrombophilia; Z66 Do not resuscitate; Z99.2 Dependence on renal dialysis; Z90.49 Acquired absence of other specified parts of digestive tract; N40.0 Benign prostatic hyperplasia without lower urinary tract symptoms; K21.9 Gastro-esophageal reflux disease without esophagitis; E78.5 Hyperlipidemia, unspecified; E11.22 Type 2 diabetes mellitus with diabetic chronic kidney disease; E11.42 Type 2 diabetes mellitus with diabetic polyneuropathy; D69.6 Thrombocytopenia, unspecified; M54.9 Dorsalgia, unspecified; M17.0 Bilateral primary osteoarthritis of knee; M10.9 Gout, unspecified; Z79.01 Long term (current) use of anticoagulants; Z79.899 Other long term (current) drug therapy; Z88.8 Allergy status to other drugs, medicaments and biological substances; Z87.891 Personal history of nicotine dependence; D63.1 Anemia in chronic kidney disease; R19.7 Diarrhea, unspecified; F32.A Depression, unspecified; F41.9 Anxiety disorder, unspecified; I44.0 Atrioventricular block, first degree; I25.10 Atherosclerotic heart disease of native coronary artery without angina pectoris; I70.0 Atherosclerosis of aorta

== ENCOUNTER → 2022-07-13 | Outpatient (CLI) | payer MEDICARE ==
[~2022-07-13] MED LIST changes: +ASPE4PAD TOP; +BACI1CAP PO; -CARD1TAB4 PO; +DOXA1TAB42 PO; +DOXA1TAB91 PO; +HYDR100T26 PO; +LOPE1CAP5 PO; +LOSA100T45 PO; +NEPR1LIQ2 PO; +NIFE30TA50 PO; +PROC90TA PO; +PROG1CAP11 PO
== END ==
LOC: M LABSMTC 08:56
PROVIDERS: ATTEND Anesthesiology
DX: Z01.812 Encounter for preprocedural laboratory examination (principal)

== ENCOUNTER 2022-07-17 06:58 | Day surgery (SDC) | payer MEDICARE ==
[~2022-07-17] VITALS: Ht 172.7 cm; Wt 75.5 kg
[~2022-07-17 06:58] MED LIST changes: +NS 1,000 ML IV ONE
[2022-07-17] MEDS ORDERED: SIMETHICONE 40MG/0.6ML DROPS 30ML As Ordered ONE (07:14)
[2022-07-17] MEDS ORDERED: LIDOCAINE 2% 100MG/5ML SDV (FOR ANES.) As Ordered ONE (08:25)
[2022-07-17] MEDS ORDERED: propofoL 500 MG/50 ML VIAL As Ordered ONE (08:25)
[2022-07-17] MEDS ORDERED: fentaNYL 100 MCG/2 ML INJECTION As Ordered ONE (08:25)
[2022-07-17] MEDS ORDERED: hydrALAZINE 20MG/ML 1ML VIAL As Ordered ONE (08:36)
[2022-07-17 09:22] VITALS: BP 156/60
[2022-07-17] MEDS ORDERED: ACETAMINOPHEN TAB 650MG DOSE (2X325MG) PO ONE (11:00)
== END 2022-07-17 13:08 | disposition home or self-care (01) ==
LOC: M OPP 06:58
PROVIDERS: ATTEND Surgery
DX: K64.9 Unspecified hemorrhoids (principal); K51.40 Inflammatory polyps of colon without complications; K52.9 Noninfective gastroenteritis and colitis, unspecified; K29.50 Unspecified chronic gastritis without bleeding; J44.9 Chronic obstructive pulmonary disease, unspecified; D50.9 Iron deficiency anemia, unspecified; G47.33 Obstructive sleep apnea (adult) (pediatric); Z87.891 Personal history of nicotine dependence; Z94.4 Liver transplant status; Z79.01 Long term (current) use of anticoagulants; Z79.899 Other long term (current) drug therapy
CPT/HCPCS: 36415; 43239; 45380; 45385; 84132; 87252; 87255; 88305; J0360; J3010